=== PATIENT | female | born 1935 | race Hispanic/Latino ===

== ENCOUNTER → 2017-09-28 | Day surgery (SDC) | payer MEDICARE ==
[~2017-09-28] MED LIST: ACETAMINOP325 MG/10 PO; ARICEPT5 MG PO; BELLADONNA/OPIUM 60 MG SUPP PR ONE; CALCIUM CARBON500 MG PO; CARVEDILOL3.125 MG PO; CEFTRIAXONE SOD 1 GM VIAL ONE; IOPAMIDOL 610MG/1ML 300 MG/ML VIAL IV ONE; LIDOCAINE HCL 2% LOCAL INJ 5 ML SDV VIAL INJ ONE; MULTI-VITAMIN1 EACH PO; NAMENDA10 MG PO; NATURAL TEARS OP; ONDANSETRON HCL INJ 2 MG/ML VIAL ONE; PROPOFOL IV EMULSION 10 MG/ML 20 ML VIAL ONE; ROBITUSSIN COU118 ML PO; ROPINIROLE HC0.25 MG PO; SEVOFLURANE INHAL SOLN 250 ML PEN BTL ONE; XANAX1 MG PO
--- NOTE | 2017-11-22 14:13 | Operative Report ---
DATE OF PROCEDURE: September 28, 2017 PREOPERATIVE DIAGNOSIS: Left nephrolithiasis. POSTOPERATIVE DIAGNOSES: 1. Left nephrolithiasis. 2. Mild rectocele. 3. Atrophic (senile) vaginitis. OPERATIONS PERFORMED: 1. Cystourethroscopy with left ureteral catheterization and retrograde ureteropyelography. 2. Interpretation of retrograde ureteropyelography. 3. Supervision of fluoroscopy, no radiologist present. 4. Cystourethroscopy with insertion of left indwelling ureteral stent. 5. Pelvic examination under anesthesia. ANESTHESIA: General. COMPLICATIONS: None. CLINICAL SUMMARY: Nabila Montgomery is an 82-year-old woman with urinary tract infections and hematuria. She is status post a right nephrectomy. She has a large left renal stone and is brought for management. She is aware of the risks of bleeding, infection, injury to adjacent structures, need for additional procedures, and elected to proceed. OPERATIVE PROCEDURE IN DETAIL: Informed consent was verified. Nabila Montgomery was properly identified, taken to the operating room, and placed on the cystoscopy table in supine position. Anesthesia was uneventfully begun. The patient was then carefully and gently repositioned in the dorsal lithotomy position with all pressure points well padded. Her genitalia were prepared and draped in usual sterile fashion. The 22.5-[place]ian cystoscope sheath with the obturator in place was atraumatically inserted into patient's urethra and bladder was drained. Panendoscopy of the urinary bladder revealed no suspicious mucosal lesions, no tumors, no stones, and no diverticula. There was a mound present where the right ureteral orifice should be. Multiple attempts were made to cannulate and find a hole within this mound and this was unsuccessful. A normal left ureteral orifice was identified. It was cannulated with ureteral catheter and retrograde ureteral pyelograms were performed. We then negotiated an open-ended catheter with the aid of a guidewire up into the proximal collecting system and obtained culture and sensitivity. We then with cystoscopic and fluoroscopic guidance placed a left indwelling ureteral stent coiled in patient's kidney as well as patient's bladder. The retaining suture was cut short. Patient's bladder was then drained. The cystoscope was withdrawn. Interpretation of retrograde ureteropyelography: Contrast was instilled in retrograde fashion on left hand side. Distal ureter was remarkable. There was a filling defect in the mid ureter corresponding to what we believe is obstructing stone. There was also filling defect corresponding to calcification as a renal pelvis stone. The stent was in perfect position, coiled in patient's renal pelvis as well as the patient's bladder at the end of the case. The patient's bladder was drained. The cystoscope was withdrawn. Pelvic examination under anesthesia revealed a minimal rectocele and atrophic (senile) vaginitis. Patient was then uneventfully reversed from anesthesia and taken to recovery room in stable condition. There were no complications to the procedure. She tolerated the procedure well. Plans will include further stone imaging, also returning the patient back to the operating room for a left ESWL. Job#: [id number]
== END | disposition home or self-care (01) ==
LOC: OR 08:24
PROVIDERS: ATTEND Urology
DX: N20.0 Calculus of kidney (principal); N39.0 Urinary tract infection, site not specified; N39.46 Mixed incontinence; N81.6 Rectocele; N95.2 Postmenopausal atrophic vaginitis; Z90.5 Acquired absence of kidney; G20 Parkinson's disease; I10 Essential (primary) hypertension; I48.91 Unspecified atrial fibrillation; F03.90 Unspecified dementia, unspecified severity, without behavioral disturbance, psychotic disturbance, mood disturbance, and anxiety; F32.9 Major depressive disorder, single episode, unspecified; F41.9 Anxiety disorder, unspecified
CPT/HCPCS: 52332; 74420; 87086; 87186; C1758; C2617; J0696; J2001; J2405; Q9967

== ENCOUNTER → 2017-10-18 | Outpatient (CLI) | payer MEDICARE ==
[~2017-10-18] MED LIST changes: -BELLADONNA/OPIUM 60 MG SUPP PR ONE; -CEFTRIAXONE SOD 1 GM VIAL ONE; -IOPAMIDOL 610MG/1ML 300 MG/ML VIAL IV ONE; -LIDOCAINE HCL 2% LOCAL INJ 5 ML SDV VIAL INJ ONE; -ONDANSETRON HCL INJ 2 MG/ML VIAL ONE; -PROPOFOL IV EMULSION 10 MG/ML 20 ML VIAL ONE; -SEVOFLURANE INHAL SOLN 250 ML PEN BTL ONE
--- NOTE | 2017-10-18 12:14 | Diagnostic Imaging Report ---
PROCEDURE: CT ABDOMEN AND PELVIS WITHOUT CONTRAST TECHNIQUE: The abdomen and pelvis were scanned utilizing a multidetector helical scanner from the diaphragm to the lesser trochanter after the oral administration of water (Gastroview/Readi-Cat 2). No IV contrast was administered per protocol. Coronal and sagittal multiplanar reformations were obtained. COMPARISON: None. INDICATIONS: RENAL STONE FINDINGS: ABSENCE OF INTRAVENOUS CONTRAST DECREASES SENSITIVITY FOR DETECTION OF FOCAL LESIONS AND VASCULAR PATHOLOGY. LOWER THORAX: Bibasilar atelectatic changes secondary to posterior eventration of the hemidiaphragms, left greater than right. Atherosclerotic calcification of the coronary arteries and thoracic aorta. HEPATOBILIARY: No focal hepatic lesions. No intrahepatic biliary ductal dilatation. Mild dilation of the common bile duct, which measures 7-8 mm at the scotty hepatis. No radiopaque intraluminal filling defects. Cholecystectomy clips. SPLEEN: No splenomegaly. PANCREAS: Moderate atrophy. No ductal dilation or focal lesions. ADRENALS: No adrenal nodules. KIDNEYS/URETERS: Right kidney is absent. 1.3 cm, nonobstructing calculus in the left renal pelvis (series 3, image 56 and sagittal image 96). Adjacent 2 mm nonobstructing calculus in the interpolar region (series 3, image 54). No other renal or any ureteral calculi. Minimal left pelviectasis. Left double-J internal ureteral stent in place. No significant stent encrustation is noted. No renal contour abnormalities. PELVIC ORGANS/BLADDER: The bladder shows no focal lesions. Uterus is absent. No adnexal masses.. PERITONEUM / RETROPERITONEUM: No free air or fluid. 7 mm calcification in the mesentery likely represents a calcified lymph node (series 3, image 85). LYMPH NODES: No lymphadenopathy. VESSELS: Atherosclerotic calcification of the abdominal aorta and iliac vessels. GI TRACT: Mild dilation of the distal rectum measuring 7 cm in AP diameter, which is filled with stool (sagittal image 85). No significant wall thickening. Rest of the bowel shows no dilation or evidence of obstruction. Sigmoid and distal descending diverticulosis, without diverticulitis. BONES AND SOFT TISSUES: Generalized osteopenia. 2-3 mm nonaggressive appearing focal sclerotic lesions in the proximal femurs and pelvic bones (for example series 3, images 167, 146, 143). 1.1 cm right acetabular and 0.8 cm left iliac bone sclerotic lesions, which have a nonaggressive appearance (series 3, images 94, and 145). 6-7 mm ill-defined sclerotic lesion in the left iliac bone (series 3, image 108). The posteromedial aspects of the right and left 10th ribs show sclerosis and indistinct cortical surfaces (series 3, images 14-16), without associated soft tissue mass. Facet hypertrophy. L5-S1. Rightward curvature of the lumbar spine, which may be positional. Soft tissues are unremarkable. IMPRESSION: 1. 1.3 cm nonobstructing calculus in the left renal pelvis. Adjacent 2 mm nonobstructing calculus in the left interpolar region. 2. Minimal left pelviectasis. No ureteral calculi, hydronephrosis, or obstruction. Left double-J internal ureteral stent in place, without significant encrustation. 3. Absent right kidney. 4. Indeterminate sclerotic lesions in the posterior aspect of the right and left 10th ribs, with indistinct cortical surfaces. Recommend bone scan for further evaluation. Other sclerotic foci in the pelvis and proximal femurs likely represent bone islands. 5. Mild dilation of the distal rectum, with prominent retained stool. No evidence of obstruction. 6. Mild dilation of the common bile duct likely reflect post cholecystectomy status. Tolu Moe M.D. Dictated by: Tolu Moe M.D. on 10/18/2017 at 12:17 Electronically approved by: Tolu Moe M.D. on 10/18/2017 at 12:17
== END ==
LOC: CT 09:26
PROVIDERS: ATTEND Urology
DX: N20.0 Calculus of kidney (principal)
CPT/HCPCS: 74176

== ENCOUNTER → 2017-11-04 | Day surgery (SDC) | payer MEDICARE, OTHER ==
[~2017-11-04] MED LIST changes: +CEFTRIAXONE SOD 1 GM VIAL ONE; +LIDOCAINE HCL 2% LOCAL INJ 5 ML SDV VIAL INJ ONE; +ONDANSETRON HCL INJ 2 MG/ML VIAL ONE; +PROPOFOL IV EMULSION 10 MG/ML 20 ML VIAL ONE; +SEVOFLURANE INHAL SOLN 250 ML PEN BTL ONE; +TYLENOL WITH C1 EACH PO; +XARELTO10 MG PO
--- NOTE | 2017-11-04 13:37 | Diagnostic Imaging Report ---
PROCEDURE:X-RAY ABDOMEN - KUB COMPARISON:CT dated 10/18/17 INDICATIONS:pre-op left eswl FINDINGS: There is a non-obstructed bowel-gas pattern. Large rectal stool burden. Left nephroureteral stent in place. 1 cm calcification overlying left renal shadow. Right renal shadow is not completely within field of view, limiting evaluation. Severe aortoiliac calcification. There are no acute osseous abnormalities, although evaluation is limited by demineralization. The lung bases are clear. CONCLUSION: Left nephroureteral stent in place. 1 cm left renal calculus. Right renal shadow is not completely within field of view, limiting evaluation. Dictated by: Ha Gallegos M.D. on 11/04/2017 at 13:41 Electronically approved by: Ha Gallegos M.D. on 11/04/2017 at 13:41
--- NOTE | 2017-12-19 05:01 | Operative Report ---
DATE OF PROCEDURE: November 04, 2017 PREOPERATIVE DIAGNOSIS: Left nephrolithiasis. POSTOPERATIVE DIAGNOSIS: Left nephrolithiasis. OPERATIONS PERFORMED: 1. Staged left-sided extracorporeal shock wave lithotripsy. 2. Supervision of fluoroscopy. No radiologist present. ANESTHESIA: General. COMPLICATIONS: None. CLINICAL SUMMARY: Nabila Montgomery is an 82-year-old woman with left nephrolithiasis. She is brought for the above procedures. She and the family are aware of the risks of bleeding, infection, injury to adjacent structures, need for additional procedures and elected to proceed. OPERATIVE PROCEDURE IN DETAIL: Informed consent was verified. Nabila Montgomery was properly identified, taken to the operating room, placed on the lithotripsy table in supine position. Anesthesia was uneventfully begun. The patient's 13-mm nephrolithiasis was localized with biplanar fluoroscopy. Total of 3000 shocks were delivered with some degree of fragmentation noted. The patient was then uneventfully reversed from anesthesia and taken to recovery room in stable condition. There were no complications during to the procedure. She tolerated the procedure well. Plans will be to return the patient to the operating room in several weeks to remove her stent, perform left ureteroscopy and indicated procedures. Job#: [id number] ADRIANA
== END | disposition home or self-care (01) ==
LOC: OR 05:45
PROVIDERS: ATTEND Urology
DX: N20.0 Calculus of kidney (principal); Z96.0 Presence of urogenital implants; N39.0 Urinary tract infection, site not specified; I10 Essential (primary) hypertension; I48.91 Unspecified atrial fibrillation; E11.9 Type 2 diabetes mellitus without complications; G30.9 Alzheimer's disease, unspecified; F02.80 Dementia in other diseases classified elsewhere, unspecified severity, without behavioral disturbance, psychotic disturbance, mood disturbance, and anxiety; F41.9 Anxiety disorder, unspecified; Z66 Do not resuscitate; Z79.02 Long term (current) use of antithrombotics/antiplatelets; Z86.718 Personal history of other venous thrombosis and embolism
CPT/HCPCS: 50590; 74018; J0696; J2001; J2405

== ENCOUNTER → 2017-12-14 | Day surgery (SDC) | payer MEDICARE, OTHER ==
[~2017-12-14] MED LIST changes: +DEXAMETHASONE SOD PHOS INJ 4 MG/ML VIAL ONE; +GENTAMICIN 80MG/NS 100 ML 200 ML IV ONE; +IOPAMIDOL 300MG/ML 50ML INFUS..BTL IV ONE; +ROCURONIUM BROMIDE 10 MG/ML 5ML VIAL ONE
[2017-12-14 10:20] LABS: BASOPHILS % 0.4 % (0.0-1.0); EOSINOPHILS # (AUTO) 0.2 (0.0-0.4); EOSINOPHILS % 2.8 % (0.0-6.0); HEMATOCRIT 33.5 % (34.2-44.1); LYMPHOCYTES # (AUTO) 1.9 (1.0-3.2); LYMPHOCYTES % 28.1 % (18.0-39.1); MEAN CORPUSCULAR HEMOGLOBIN 30.5 pg (28-32); MEAN CORPUSCULAR HGB CONC 32.8 g/dL (31-35); MEAN CORPUSCULAR VOLUME 92.8 fL (81-99); MONOCYTES # (AUTO) 0.4 (0.2-0.8); MONOCYTES % 6.2 % (4.4-11.3); NEUTROPHILS # (AUTO) 4.2 (2.1-6.9); NEUTROPHILS % 62.2 % (38.7-80.0); PLATELET COUNT 195 x10e3/uL (140-360); RED BLOOD COUNT 3.61 x10e6/uL (3.6-5.1); RED CELL DISTRIBUTION WIDTH 16.7 % (11.7-14.4)
--- NOTE | 2017-12-14 10:44 | Diagnostic Imaging Report ---
PROCEDURE:X-RAY ABDOMEN - KUB COMPARISON:KUB 11/04/[address] Abdomen/Pelvis 10/18/17. INDICATIONS:PREOPERATIVE XRAY FOR UROLOGY SURGERY FINDINGS: Left sided internal ureteral stent in unchanged position. Again noted is a 1 cm calcification overlying the left kidney. Non obstructive bowel gas pattern. Status post cholecystectomy. Atherosclerotic aortic calcifications. No acute bony abnormalities. Dextroconvex curvature of the lumbar spine with degenerative changes. CONCLUSION: Left ureteral stent. Similar appearance of 1 cm left renal stone. Dictated by: JAY WELLER M.D. on 12/14/2017 at 10:50 Electronically approved by: JAY WELLER M.D. on 12/14/2017 at 10:50
--- NOTE | 2017-12-14 11:48 | Diagnostic Imaging Report ---
PROCEDURE: A single AP view of the chest. COMPARISON: None. INDICATIONS: PREOPERATIVE XRAY FOR UROLOGY SURGERY FINDINGS: Lines/tubes: None. Lungs: The lungs are moderately inflated. Mild left basilar atelectasis. There is no evidence of pneumonia or pulmonary edema. Pleura: There is no pleural effusion or pneumothorax. Heart and mediastinum: The heart and the mediastinum are unremarkable. Bones: No acute bony abnormality. IMPRESSION: No acute cardiopulmonary disease. Dictated by: Jonathan Bae M.D. on 12/14/2017 at 11:53 Electronically approved by: Jonathan Bae M.D. on 12/14/2017 at 11:53
--- NOTE | 2018-02-07 15:33 | Operative Report ---
DATE OF PROCEDURE: December 14, 2017 PREOPERATIVE DIAGNOSES: 1. Left nephrolithiasis. 2. Left indwelling ureteral stents. POSTOPERATIVE DIAGNOSES: 1. Left nephrolithiasis. 2. Left indwelling ureteral stents. 3. Atrophic vaginitis. 4. Mild rectocele. PROCEDURES PERFORMED: Note: These are all staged procedures as part of a multistage, multistep process in managing the patient's urolithiasis. 1. Cystourethroscopy with removal of left indwelling ureteral stent (separate procedure performed with a separate scope for the diagnosis of the stent). 2. Extensive left ureteroscopy with stone manipulation (separate procedure performed for the massive amount of nephrolithiasis within the patient). 3. Radiological services for supervision and interpretation of ureteroscopy. 4. Interpretation of retrograde ureteropyelography. 5. Supervision of fluoroscopy. No radiologist present. 6. Pelvic examination under anesthesia. ANESTHESIA: General. COMPLICATIONS: None. CLINICAL SUMMARY: Nabila Montgomery is an 82-year-old woman with nephrolithiasis. She underwent ureteral stenting and underwent stone treatment. She is brought to the operating room in hopes of rendering her stent-free and stone-free. Family and the patient are aware of the risks of bleeding, infection, injury to adjacent structures, need for additional procedures and elected to proceed. OPERATIVE PROCEDURE IN DETAIL: Informed consent was verified. Nabila Montgomery was properly identified, taken to the operating room and placed on the cystoscopy table in supine position, and anesthesia was uneventfully begun. The patient was then carefully and gently repositioned in the dorsal lithotomy position with all pressure points well padded. Her genitalia were prepared and draped in the usual sterile fashion. The 22.5-[place]ian cystoscope sheath with the obturator in place was atraumatically inserted in the patient's urethra, and the bladder was drained. Panendoscopy revealed no suspicious mucosal lesions, no tumors, no stones and no diverticula. A stent was noted to be emerging from the left ureteral orifice. A guidewire was then placed alongside the stent and guided to the level of the patient's kidney. The stent was then grasped, completely removed and discarded. A semi-rigid ureteroscope was then placed alongside the guidewire into the ureter where there was extensive amount of sand noted. This sand was irrigated loose from the mucosa, but there were no significantly sized stones to grasp. A secondary guidewire was left in place, and we utilized to guide a flexible ureteroscope to the level of the patient's kidney. Within the kidney there was a massive amount of stone burden. There were innumerable stones measuring 2 mm or less within the patient's intrarenal collecting system. We manipulated these stones as best as possible to dislodge them. We also irrigated the renal pelvis free of numerous blood clots. All this stone burden is passable. However, the patient is not ideally mobile and does not ambulate as one would wish, and passage of all this stone burden may prove challenging. Nevertheless, all these stone fragments that are now left behind are passable. Following removal of as many stones as we could and irrigation of all remaining stones, we carefully re-examined the ureter, which exhibited no residual stone fragments. The patient's bladder was then drained. The cystoscope was withdrawn. Interpretation of retrograde ureteropyelography: Contrast was instilled in a retrograde fashion on the left-hand side. There was chronic hydronephrosis with caliceal blunting. There was unobstructed drainage that was noted down a relatively unremarkable ureter. There was no extravasation. Pelvic examination under anesthesia revealed atrophic vaginitis with a mild rectocele. No abnormal palpable pelvic masses could be appreciated, and there were no obvious mucosal lesions. Patient was then uneventfully reversed from anesthesia and taken to the recovery room in stable condition. There were no complications of the procedure. He tolerated the procedure well. Explicit discharge instructions were given. We will follow the patient up in the office. Job#: [id number] BRENDAN
== END | disposition home or self-care (01) ==
LOC: OR 09:50
PROVIDERS: ATTEND Urology
DX: N20.0 Calculus of kidney (principal); Z46.6 Encounter for fitting and adjustment of urinary device; N95.2 Postmenopausal atrophic vaginitis; N81.6 Rectocele; N13.30 Unspecified hydronephrosis; F03.90 Unspecified dementia, unspecified severity, without behavioral disturbance, psychotic disturbance, mood disturbance, and anxiety; I48.91 Unspecified atrial fibrillation; I10 Essential (primary) hypertension; G20 Parkinson's disease; Z79.02 Long term (current) use of antithrombotics/antiplatelets; Z86.73 Personal history of transient ischemic attack (TIA), and cerebral infarction without residual deficits
CPT/HCPCS: 36415; 52352; 71045; 74420; 85025; 87086; J0696; J1100; J1580; J2001; J2405; Q9967; 74018

== ENCOUNTER → 2018-01-24 | Outpatient (CLI) | payer MEDICARE, OTHER ==
[~2018-01-24] MED LIST changes: -CEFTRIAXONE SOD 1 GM VIAL ONE; -DEXAMETHASONE SOD PHOS INJ 4 MG/ML VIAL ONE; -GENTAMICIN 80MG/NS 100 ML 200 ML IV ONE; -IOPAMIDOL 300MG/ML 50ML INFUS..BTL IV ONE; -LIDOCAINE HCL 2% LOCAL INJ 5 ML SDV VIAL INJ ONE; -ONDANSETRON HCL INJ 2 MG/ML VIAL ONE; -PROPOFOL IV EMULSION 10 MG/ML 20 ML VIAL ONE; -ROCURONIUM BROMIDE 10 MG/ML 5ML VIAL ONE; -SEVOFLURANE INHAL SOLN 250 ML PEN BTL ONE
--- NOTE | 2018-01-24 12:18 | Diagnostic Imaging Report ---
PROCEDURE: CT ABDOMEN AND PELVIS WITHOUT CONTRAST TECHNIQUE: The abdomen and pelvis were scanned utilizing a multidetector helical scanner from the diaphragm to the lesser trochanter without IV or oral contrast. Coronal and sagittal multiplanar reformations were obtained. COMPARISON: CT Abdomen/Pelvis 10/18/17. INDICATIONS: RENAL CALCULUS FINDINGS: ABSENCE OF INTRAVENOUS CONTRAST DECREASES SENSITIVITY FOR DETECTION OF FOCAL LESIONS AND VASCULAR PATHOLOGY. LOWER THORAX: Bibasilar patchy atelectasis. Coronary atherosclerosis. HEPATOBILIARY: No focal hepatic lesions. Status post cholecystectomy. Mild prominence of the CBD is unchanged. SPLEEN: No splenomegaly. PANCREAS: No focal masses or ductal dilatation. Moderate parenchymal atrophy. ADRENALS: No adrenal nodules. KIDNEYS/URETERS: Right kidney is absent. Interval removal of left sided internal ureteral stent. No evidence of hydronephrosis. No evidence of solid mass. Interval treatment of previously noted large left renal pelvis stone. Enlarging 6 mm left upper pole renal stone on series 3, image 53, previously 1 mm. There is a new 4 mm left mid pole renal stone on image 58, enlarging 6 mm left lower pole stone on image 64 previously 2 mm; and en enlarging 4 mm left lower pole stone on image 70, previously 2 mm. No evidence of ureteral stone. PELVIC ORGANS/BLADDER: Uterus is absent. Punctate dependent 1-2 mm stones are present within the bladder near the left UVJ. PERITONEUM / RETROPERITONEUM: No free air or fluid. LYMPH NODES: No lymphadenopathy. VESSELS: Atherosclerotic changes of the abdominal aorta and branch vessels. GI TRACT: No distention or wall thickening. Diverticulosis without CT evidence of diverticulitis. BONES AND SOFT TISSUES: No acute bony findings. Diffuse osteopenia. Previously identified sclerotic foci in the bilateral tenth ribs are no longer visualized. Other scattered sclerotic foci are unchanged from CT on 10/18/17. IMPRESSION: Status post interval removal of left internal ureteral stent with no hydronephrosis. Interval treatment of left sided renal pelvis stone. Non-obstructive left sided stones measuring up to 6 mm as above and punctate bladder stones. No evidence of ureteral stone. Dictated by: JAY WELLER M.D. on 01/24/2018 at 9:24 Electronically approved by: JAY WELLER M.D. on 01/24/2018 at 9:24
--- NOTE | 2018-01-24 12:19 | Diagnostic Imaging Report ---
PROCEDURE:X-RAY ABDOMEN - KUB COMPARISON:CT Abdomen/Pelvis 10/18/17 and 01/24/18. KUB 12/14/17. INDICATIONS:CALCULUS OF KIDNEY FINDINGS: Interval removal of left sided internal ureteral stent. Bowel gas obscures visualization of the left kidney. There is a 6 mm calcification projecting over the left mid kidney, corresponding to stone. No stones seen overlying the expected course of the ureter. Non-obstructive bowel gas pattern. Diffuse osteopenia with dextroconvex scoliosis of the thoracolumbar spine. No acute bony findings. CONCLUSION: Left sided renal stone measuring 6 mm. Please refer to the same day abdominal CT for further details. Dictated by: JAY WELLER M.D. on 01/24/2018 at 9:27 Electronically approved by: JAY WELLER M.D. on 01/24/2018 at 9:27
== END ==
LOC: CT 07:40
PROVIDERS: ATTEND Urology
DX: N20.0 Calculus of kidney (principal)
CPT/HCPCS: 74018; 74176

== ENCOUNTER → 2018-02-08 | Outpatient (CLI) | payer MEDICARE ==
[2018-02-08 10:13] LABS: BASOPHILS % 0.4 % (0.0-1.0); EOSINOPHILS # (AUTO) 0.2 (0.0-0.4); EOSINOPHILS % 2.1 % (0.0-6.0); HEMATOCRIT 36.3 % (34.2-44.1); HEMOGLOBIN 11.9 g/dL (12.0-16.0); LYMPHOCYTES # (AUTO) 2.4 (1.0-3.2); LYMPHOCYTES % 31.7 % (18.0-39.1); MEAN CORPUSCULAR HEMOGLOBIN 30.9 pg (28-32); MEAN CORPUSCULAR HGB CONC 32.8 g/dL (31-35); MEAN CORPUSCULAR VOLUME 94.3 fL (81-99); MONOCYTES # (AUTO) 0.6 (0.2-0.8); MONOCYTES % 7.7 % (4.4-11.3); NEUTROPHILS # (AUTO) 4.3 (2.1-6.9); NEUTROPHILS % 57.8 % (38.7-80.0); PLATELET COUNT 239 x10e3/uL (140-360); RED BLOOD COUNT 3.85 x10e6/uL (3.6-5.1); RED CELL DISTRIBUTION WIDTH 15.8 % (11.7-14.4)
[2018-02-08 10:39] LABS: BLOOD UREA NITROGEN 14 mg/dL (7-26); BUN/CREATININE RATIO 19 (6-25); CALCIUM 9.1 mg/dL (8.4-10.2); CARBON DIOXIDE 24 mmol/L (22-29); CHLORIDE 109 mmol/L (98-107); CREATININE, SERUM 0.72 mg/dL (0.57-1.11); EST GLOMERULAR FILTRATION RATE > 60 ML/MIN (60-); GLUCOSE 93 mg/dL (74-118); SODIUM 142 mmol/L (136-145)
--- NOTE | 2018-02-08 11:28 | Diagnostic Imaging Report ---
EXAMINATION: ABDOMEN-2 VIEWS (KUB) COMPARISON: CT Abdomen/Pelvis 01/24/18. FINDINGS: Bowel gas partially obscures visualization of the kidneys. There are three calcifications, consistent with stones overlying the left kidney measuring 3 mm, 5 mm, and 6 mm. Additional smaller left renal and bladder stones are not visualized. Calcified phleboliths project over the pelvis. There is a nonobstructive bowel gas pattern. The rectum is distended measuring up to 10 cm. Status post cholecystectomy. Diffuse osteopenia. Dextroconvex curvature of the lumbar spine. Atherosclerotic aortic calcifications. IMPRESSION: Left sided renal stones measuring up to 6 mm. Signed by: Dr. Elisa Jay MD on 02/08/2018 11:24 AM
== END ==
LOC: RAD 09:20 → OR 09:20 → EDSTATUS 11:00
PROVIDERS: ATTEND Urology
DX: Z01.818 Encounter for other preprocedural examination (principal); N20.0 Calculus of kidney; Z53.8 Procedure and treatment not carried out for other reasons
CPT/HCPCS: 36415; 74018; 80048; 84550; 85025; 93005

== ENCOUNTER → 2018-02-10 | Day surgery (SDC) | payer MEDICARE, OTHER ==
[~2018-02-10] MED LIST changes: +CEFTRIAXONE SOD 1 GM VIAL ONE; +DEXAMETHASONE SOD PHOS INJ 4 MG/ML VIAL ONE; +IOPAMIDOL 610MG/1ML 300 MG/ML VIAL IV ONE; +LIDOCAINE HCL 2% LOCAL INJ 5 ML SDV VIAL INJ ONE; +ONDANSETRON HCL INJ 2 MG/ML VIAL ONE; +PROPOFOL IV EMULSION 10 MG/ML 20 ML VIAL ONE; +SEVOFLURANE INHAL SOLN 250 ML PEN BTL ONE
[2018-02-10 14:30] VITALS: BP 130/66
--- NOTE | 2018-03-21 01:58 | Operative Report ---
DATE OF PROCEDURE: February 10, 2018 PREOPERATIVE DIAGNOSES 1. Left nephrolithiasis. 2. Left ureterolithiasis. 3. Cystolithiasis. POSTOPERATIVE DIAGNOSES 1. Left nephrolithiasis. 2. Left ureterolithiasis. 3. Cystolithiasis. OPERATIONS PERFORMED: Note these are all staged procedures as part of a multistage multistep process of managing patient's urolithiasis. 1. Left-sided extracorporeal shock wave lithotripsy (separate staged procedure for the left nephrolithiasis). 2. Cystourethroscopy with left ureteral catheterization and retrograde pyelography (separate procedure performed to evaluate for left ureterolithiasis). 3. Cystolitholapaxy (separate procedure performed for the cystolithiasis). 4. Interpretation of retrograde ureteropyelography. ANESTHESIA: General. COMPLICATIONS: None. CLINICAL SUMMARY: Nabila Montgomery is an 82-year-old woman with urolithiasis. She is status post a right-sided nephrectomy. She is brought to the operating room today for management of her 7-mm left kidney stone. In the upper kristen, there was a 6-mm stone in the middle kristen and the lower kristen. The family is aware of the risks of bleeding, infection, injury to adjacent structures, need for additional procedures, and elected to proceed. OPERATIVE PROCEDURE IN DETAIL: Informed consent was verified. Nabila Montgomery was properly identified, taken to operating room, placed on the lithotripsy table in supine position. Anesthesia was uneventfully begun. The patient's left nephrolithiasis was localized with biplanar fluoroscopy. Total of 3000 shocks were delivered distributing them among the upper middle and lower caliceal stones. Fragmentation was noted. The patient was carefully and gently repositioned in dorsal lithotomy position with all pressure points well padded. Her genitalia were prepared and draped in usual sterile fashion. A 22.5-Turkish cystoscope sheath with obturator in place was atraumatically inserted in patient's urethra and the bladder was drained. Panendoscopy of urinary bladder revealed no suspicious mucosal lesions. No tumors and no diverticula. Heavy trabeculations were noted. With multiple cellules present. There was rather significant amount of sand noted within the bladder. There were copious amounts of bladder stones present. We could not identify the right ureteral orifice status post the patient's nephrectomy. We did see the left ureteral orifice. We cannulated that orifice and contrast was injected. Interpretation of retrograde ureteropyelography contrast was instilled in retrograde fashion. There were filling defects in the intrarenal collecting system, which corresponded to the locations where we performed lithotripsy. We presumed these filling defects are blood clots, as well as fragmented stone debris. The ureter was unremarkable. There were no tumors, no stones, and no diverticula. Unobstructed drainage was observed fluoroscopically. The calcification that was suggested to be a left ureteral stone is a phlebolith and is not associated with the urinary tract collecting system. Cystolitholapaxy was then performed. We evacuated numerous amount of bladder stones and careful panendoscopy revealed that indeed all bladder stone fragments were removed. The patient's bladder was drained. Cystoscope was withdrawn and the patient was uneventfully reversed from anesthesia and taken to recovery room in stable condition. There were no complications to procedure. She tolerated the procedure well. Explicit postop instructions were given. Will follow the patient up in the office. Job#: [id number] CQ
== END | disposition home or self-care (01) ==
LOC: OR 08:25
PROVIDERS: ATTEND Urology
DX: N20.0 Calculus of kidney (principal); N20.1 Calculus of ureter; N21.0 Calculus in bladder; Z90.5 Acquired absence of kidney; N32.89 Other specified disorders of bladder; N39.0 Urinary tract infection, site not specified; N39.46 Mixed incontinence; I10 Essential (primary) hypertension; I48.91 Unspecified atrial fibrillation; F03.90 Unspecified dementia, unspecified severity, without behavioral disturbance, psychotic disturbance, mood disturbance, and anxiety; G20 Parkinson's disease; F41.9 Anxiety disorder, unspecified; Z79.02 Long term (current) use of antithrombotics/antiplatelets
CPT/HCPCS: 50590; 52317; 87086; 88300; C1758; J0696; J1100; J2001; J2405; Q9967

== ENCOUNTER → 2018-03-20 | Outpatient (CLI) | payer MEDICARE ==
[~2018-03-20] MED LIST changes: -CEFTRIAXONE SOD 1 GM VIAL ONE; -DEXAMETHASONE SOD PHOS INJ 4 MG/ML VIAL ONE; -IOPAMIDOL 610MG/1ML 300 MG/ML VIAL IV ONE; -LIDOCAINE HCL 2% LOCAL INJ 5 ML SDV VIAL INJ ONE; -ONDANSETRON HCL INJ 2 MG/ML VIAL ONE; -PROPOFOL IV EMULSION 10 MG/ML 20 ML VIAL ONE; -SEVOFLURANE INHAL SOLN 250 ML PEN BTL ONE
--- NOTE | 2018-03-20 09:56 | Diagnostic Imaging Report ---
PROCEDURE: CT ABDOMEN AND PELVIS WITHOUT CONTRAST TECHNIQUE: The abdomen and pelvis were scanned utilizing a multidetector helical scanner from the diaphragm to the lesser trochanter. No IV contrast was administered per renal stone protocol. Coronal and sagittal multiplanar reformations were obtained. COMPARISON: CT Abdomen/Pelvis 01/24/18. Report from CT abd/pelvis outside hospital 02/16/2018, no images are available for review. INDICATIONS: SUSPECTED HEMATOMA FINDINGS: ABSENCE OF INTRAVENOUS CONTRAST DECREASES SENSITIVITY FOR DETECTION OF FOCAL LESIONS AND VASCULAR PATHOLOGY. LOWER THORAX: Bibasilar patchy atelectasis. Coronary atherosclerosis. HEPATOBILIARY: No focal hepatic lesions. Status post cholecystectomy. Mild prominence of the CBD is unchanged. SPLEEN: No splenomegaly. PANCREAS: No focal masses or ductal dilatation. Moderate parenchymal atrophy. ADRENALS: No adrenal nodules. KIDNEYS/URETERS: Right kidney is absent. No evidence of hydronephrosis. No evidence of solid mass. Interval treatment of left sided renal stones. Left subcapsular heterogeneously hyperdense hematoma is present measuring up to 3.1 cm in thickness (43 HU series 402, image 60). Per outside hospital CT report, there was a 2.5 cm subcapsular hematoma on 02/16/18, however images are not available for comparison. There is a 3 mm left upper pole renal stone. PELVIC ORGANS/BLADDER: Uterus is absent. Punctate dependent 1-2 mm stones are present within the bladder near the left UVJ. PERITONEUM / RETROPERITONEUM: No free air or fluid. LYMPH NODES: No lymphadenopathy. VESSELS: Atherosclerotic changes of the abdominal aorta and branch vessels. GI TRACT: No distention or wall thickening. Colonic diverticulosis without CT evidence of diverticulitis. Normal appendix. BONES AND SOFT TISSUES: Degenerative changes without acute bony findings. IMPRESSION: Status post intervention for left sided renal stones with development of a left subcapsular hematoma measuring up to 3.1 cm. Per outside hospital CT report, there was a 2.5 cm left subcapsular hematoma on 02/16/18, however images are not available for comparison. Dictated by: JAY WELLER M.D. on 03/20/2018 at 10:05 Electronically approved by: JAY WELLER M.D. on 03/20/2018 at 10:05
== END ==
LOC: CT 08:29
PROVIDERS: ATTEND Urology
DX: R31.0 Gross hematuria (principal); N20.0 Calculus of kidney
CPT/HCPCS: 74176

== ENCOUNTER → 2018-06-02 | Outpatient (CLI) | payer MEDICARE, MEDICAID ==
--- NOTE | 2018-06-02 13:45 | Diagnostic Imaging Report ---
EXAM: CT Abdomen and Pelvis WITHOUT contrast INDICATION: Renal stones. COMPARISON: [facility] 02/08/2018 TECHNIQUE: Abdomen and pelvis were scanned utilizing a multidetector helical scanner from the lung base to the pubic symphysis without administration of IV contrast. Absence of intravenous contrast decreases sensitivity for detection of focal lesions and vascular pathology. Coronal and sagittal reformations were obtained. Renal stone protocol was performed. IV CONTRAST: None. ORAL CONTRAST: Water RADIATION DOSE: Total DLP: 947.5 mGy*cm COMPLICATIONS: None FINDINGS: LINES and TUBES: None. LOWER THORAX: Coronary atherosclerosis. Patchy dependent atelectasis. Calcified granuloma in the left lower lobe. HEPATOBILIARY: No focal hepatic lesions. No biliary ductal dilation. Status post cholecystectomy. SPLEEN: No splenomegaly. PANCREAS: No focal masses or ductal dilatation. ADRENALS: No adrenal nodules KIDNEYS/URETERS: Status post right nephrectomy. No hydronephrosis. No cystic or solid mass lesions. There is a 4 mm nonobstructing left midpole renal stone. GI TRACT: No abnormal distention, wall thickening, or evidence of bowel obstruction. Colonic diverticulosis without CT evidence of diverticulitis. Appendix is normal. PELVIC ORGANS/BLADDER: Fluid noted in the vagina. Status post hysterectomy. LYMPH NODES: No lymphadenopathy. VESSELS: Extensive atherosclerotic changes of the abdominal aorta and branch vessels. PERITONEUM / RETROPERITONEUM: No free air or fluid. BONES/SOFT TISSUES: Diffuse osteopenia. Extra convex scoliosis of the lumbar spine. Partially seen fixation hardware within the right femur. Age indeterminate mild wedge compression deformity of the T11 vertebral body. IMPRESSION: A 4 mm nonobstructing left midpole renal stone. Age indeterminate mild wedge compression deformity of the T11 vertebral body. Signed by: Dr. Elisa Jay MD on 06/02/2018 1:42 PM
== END ==
LOC: CT 10:42
PROVIDERS: ATTEND Urology
DX: N20.0 Calculus of kidney (principal); R31.9 Hematuria, unspecified; R05 Cough; G20 Parkinson's disease; F02.80 Dementia in other diseases classified elsewhere, unspecified severity, without behavioral disturbance, psychotic disturbance, mood disturbance, and anxiety
CPT/HCPCS: 74176

== ENCOUNTER 2021-03-09 15:51 | Inpatient (IN) | payer MEDICARE, OTHER ==
[~2021-03-09] VITALS: Ht 160 cm; Wt 66.2 kg
[2021-03-09 16:35] LABS: BASOPHILS # (AUTO) 0.1 (0.0-0.1); BASOPHILS % 0.4 % (0.0-1.0); EOSINOPHILS # (AUTO) 0.3 (0.0-0.4); EOSINOPHILS % 2.5 % (0.0-6.0); HEMATOCRIT 32.2 % (34.2-44.1); HEMOGLOBIN 9.6 g/dL (12.0-16.0); LYMPHOCYTES # (AUTO) 1.8 (1.0-3.2); LYMPHOCYTES % 15.5 % (18.0-39.1); MEAN CORPUSCULAR HEMOGLOBIN 29.4 pg (28-32); MEAN CORPUSCULAR HGB CONC 29.8 g/dL (31-35); MEAN CORPUSCULAR VOLUME 98.8 fL (81-99); MONOCYTES % 8.7 % (4.4-11.3); NEUTROPHILS # (AUTO) 8.6 (2.1-6.9); NEUTROPHILS % 72.4 % (38.7-80.0); PLATELET COUNT 441 x10e3/uL (140-360); RED BLOOD COUNT 3.26 x10e6/uL (3.6-5.1); RED CELL DISTRIBUTION WIDTH 15.7 % (11.7-14.4)
[2021-03-09 16:45] LABS: INR 1.24; PROTHROMBIN TIME 16.6 seconds (11.9-14.5)
[2021-03-09 16:54] LABS: ALBUMIN/GLOBULIN RATIO 0.6 (0.8-2.0); ANION GAP 13.3 mmol/L (8-16); CALCIUM 7.9 mg/dL (8.4-10.2); CREATININE, SERUM 0.57 mg/dL (0.57-1.11); POTASSIUM 4.3 mmol/L (3.5-5.1)
[2021-03-09] MEDS ORDERED: Morphine 4mg Syringe 4 MG/ML INJ IV PRN (17:45)
[2021-03-09] MEDS: SODIUM CHLORIDE 0.9% 1000ML 1,000 ML IV SCH (18:04)
[2021-03-09] MEDS: PIPERACILLIN/TAZOBACTAM 3.375 GM in SODIUM CHLORIDE 0.9% 50ML 50 ML IV SCH (18:04)
[2021-03-09] MEDS: Morphine 4mg Syringe 4 MG/ML INJ IV PRN (18:05)
[2021-03-09] MEDS ORDERED: SODIUM CHLORIDE 0.9% 1000ML 1,000 ML IV STA ×2 (18:10→18:44)
[2021-03-09 19:38] LABS: CLARITY,URINE CLOUDY (CLEAR); COLOR,URINE AMBER (YELLOW); LEUKOCYTE ESTERASE ,URINE NEGATIVE (NEGATIVE); NITRITE,URINE NEGATIVE (NEGATIVE); PROTEIN,URINE DIPSTICK NEGATIVE (NEGATIVE)
[2021-03-09 19:39] LABS: KETONES,URINE NEGATIVE (NEGATIVE); URINE UROBILINOGEN 0.2 mg/dL (0.2 - 1)
[2021-03-09 20:02] LABS: BACTERIA,URINE MANY /HPF; CALCIUM OXALATE CRYSTALS,UR FEW (FEW); EPITHELIAL CELLS,URINE FEW /LPF; RBC,URINE 21-50 /HPF (0-5)
[2021-03-09 20:04] LABS: URIC ACID CRYSTALS,URINE MANY (FEW)
[2021-03-09 20:05] LABS: AMORPHOUS SEDIMENT,URINE MANY (FEW); TRIPLE PHOSPHATE CRYSTAL,UR FEW (FEW)
[2021-03-09] MEDS ORDERED: HEPARIN SOD (PORCINE) 5,000 UNIT/ML VIAL SC ONE (23:00)
[2021-03-10] VITALS (10 sets, daily range): BP systolic 93–137; BP diastolic 56–72
[2021-03-10 02:43] LABS: CREATINE KINASE MB 1.4 ng/mL (0-5.0)
[2021-03-10] MEDS: Morphine 4mg Syringe 4 MG/ML INJ IV PRN ×3 (02:49→20:37)
[2021-03-10] MEDS: SODIUM CHLORIDE 0.9% 1000ML 1,000 ML IV SCH ×3 (03:16→14:18)
[2021-03-10] MEDS ORDERED: SENNA LAX8.6 MG PO (03:47)
[2021-03-10] MEDS ORDERED: ROBITUSSIN COU118 M4 PO (03:47)
[2021-03-10] MEDS ORDERED: FEROSUL325 MG PO (03:47)
[2021-03-10] MEDS ORDERED: ELIQUIS2.5 MG PO (03:47)
[2021-03-10] MEDS ORDERED: ARGINAID POWDE1 EACH (03:47)
[2021-03-10] MEDS ORDERED: PEPCID20 MG PO (03:47)
[2021-03-10] MEDS ORDERED: ASCORBIC ACID500 M2 PO (03:47)
[2021-03-10] MEDS ORDERED: ZOFRAN4 MG PO (03:47)
[2021-03-10] MEDS ORDERED: HYPROMELLOSE (03:47)
[2021-03-10] MEDS ORDERED: VITAMIN D350 MCG (03:47)
[2021-03-10] MEDS ORDERED: ZINC-22050 MG (03:47)
[2021-03-10] MEDS ORDERED: ATORVASTATIN CA10 MG PO (03:47)
[2021-03-10] MEDS ORDERED: INVANZ1 GM (03:47)
[2021-03-10] MEDS ORDERED: BUSPIRONE HCL5 MG PO (03:47)
[2021-03-10] MEDS ORDERED: MELATONIN3 MG PO (03:47)
[2021-03-10] MEDS: PIPERACILLIN/TAZOBACTAM 3.375 GM in SODIUM CHLORIDE 0.9% 50ML 50 ML IV SCH (03:48)
[2021-03-10] MEDS: ONDANSETRON HCL INJ 2MG/ML 2ML 2 MG/ML VIAL IV PRN ×2 (03:48→20:37)
[2021-03-10 07:48] LABS: BASOPHILS # (AUTO) 0.1 (0.0-0.1); BASOPHILS % 0.9 % (0.0-1.0); EOSINOPHILS # (AUTO) 0.3 (0.0-0.4); EOSINOPHILS % 3.7 % (0.0-6.0); HEMATOCRIT 31.5 % (34.2-44.1); HEMOGLOBIN 8.7 g/dL (12.0-16.0); LYMPHOCYTES # (AUTO) 1.8 (1.0-3.2); LYMPHOCYTES % 22.8 % (18.0-39.1); MEAN CORPUSCULAR HEMOGLOBIN 29.4 pg (28-32); MEAN CORPUSCULAR HGB CONC 27.6 g/dL (31-35); MEAN CORPUSCULAR VOLUME 106.4 fL (81-99); MONOCYTES # (AUTO) 0.6 (0.2-0.8); MONOCYTES % 8.1 % (4.4-11.3); NEUTROPHILS # (AUTO) 4.9 (2.1-6.9); PLATELET COUNT 321 x10e3/uL (140-360); RED BLOOD COUNT 2.96 x10e6/uL (3.6-5.1); RED CELL DISTRIBUTION WIDTH 15.9 % (11.7-14.4)
[2021-03-10 08:08] LABS: ALBUMIN 1.9 g/dL (3.5-5.0); ALBUMIN/GLOBULIN RATIO 0.6 (0.8-2.0); ANION GAP 12.2 mmol/L (8-16); CALCIUM 7.6 mg/dL (8.4-10.2); CREATININE, SERUM 0.55 mg/dL (0.57-1.11); POTASSIUM 4.2 mmol/L (3.5-5.1)
[2021-03-10 11:23] LABS: EOSINOPHILS % (MANUAL) 3 % (0-7); LYMPHOCYTES % (MANUAL) 23 % (19-48); MONOCYTES % (MANUAL) 9 % (3.4-9.0); NEUTROPHILS % (MANUAL) 65 % (40-74)
[2021-03-10 11:24] LABS: PLATELET ESTIMATE ADEQUATE; PLATELET MORPHOLOGY COMMENT NORMAL; RBC MORPHOLOGY COMMENT ABNORMAL
[2021-03-10 11:28] LABS: CREATINE KINASE MB 1.5 ng/mL (0-5.0)
[2021-03-10] MEDS ORDERED: PROPOFOL IV EMULSION 10 MG/ML 20 ML VIAL ONE (12:39)
[2021-03-10] MEDS ORDERED: NEOSTIGMINE 1 MG/ML 10ML VIAL ONE (12:39)
[2021-03-10] MEDS ORDERED: GLYCOPYRROLATE INJ 0.2 MG/ML VIAL ONE (12:39)
[2021-03-10] MEDS ORDERED: SEVOFLURANE INHAL SOLN 250 ML PEN BTL ONE (12:39)
[2021-03-10] MEDS ORDERED: LIDOCAINE HCL 2% LOCAL INJ 5 ML SDV VIAL INJ ONE (12:39)
[2021-03-10] MEDS ORDERED: POVIDONE IODINE 0.05% 0.05 % ML PO ONE (12:39)
[2021-03-10] MEDS ORDERED: ROCURONIUM BROMIDE 10 MG/ML 5ML VIAL IV ONE (12:39)
[2021-03-10] MEDS ORDERED: ONDANSETRON HCL INJ 2MG/ML 2ML 2 MG/ML VIAL ONE (12:39)
[2021-03-10] MEDS: BUSPIRONE HCL 5 MG TAB PO SCH ×2 (15:00→21:00)
[2021-03-10] MEDS ORDERED: ACETAMINOPHEN 1000 MG/100 ML 100 ML IV ONE (15:34)
[2021-03-10] MEDS ORDERED: FENTANYL CITRATE/PF 100MCG/2 ML INJ ONE (15:35)
[2021-03-10] MEDS: MEMANTINE 10 MG TAB PO SCH (17:00)
[2021-03-10] MEDS: CARVEDILOL 3.125 MG TAB PO SCH (17:00)
[2021-03-10] MEDS ORDERED: BUPIVACAINE HCL 0.5% INJ 30 ML VIAL INJ ONE (18:31)
[2021-03-10 20:04] LABS: BASOPHILS # (AUTO) 0.1 (0.0-0.1); BASOPHILS % 0.5 % (0.0-1.0); EOSINOPHILS # (AUTO) 0.5 (0.0-0.4); EOSINOPHILS % 2.8 % (0.0-6.0); HEMATOCRIT 32.8 % (34.2-44.1); HEMOGLOBIN 8.8 g/dL (12.0-16.0); LYMPHOCYTES # (AUTO) 2.8 (1.0-3.2); LYMPHOCYTES % 16.9 % (18.0-39.1); MEAN CORPUSCULAR HEMOGLOBIN 29.7 pg (28-32); MEAN CORPUSCULAR HGB CONC 26.8 g/dL (31-35); MEAN CORPUSCULAR VOLUME 110.8 fL (81-99); MONOCYTES % 5.8 % (4.4-11.3); NEUTROPHILS # (AUTO) 12.2 (2.1-6.9); NEUTROPHILS % 73.2 % (38.7-80.0); PLATELET COUNT 428 x10e3/uL (140-360); RED BLOOD COUNT 2.96 x10e6/uL (3.6-5.1); RED CELL DISTRIBUTION WIDTH 15.8 % (11.7-14.4)
[2021-03-10 20:21] LABS: ANION GAP 12.1 mmol/L (8-16); CALCIUM 7.6 mg/dL (8.4-10.2); CREATININE, SERUM 0.59 mg/dL (0.57-1.11); POTASSIUM 4.1 mmol/L (3.5-5.1)
[2021-03-10] MEDS: DONEPEZIL HCL 5 MG TAB PO SCH (21:00)
[2021-03-10] MEDS: ROPINIROLE HCL 0.25 MG TAB PO SCH (21:00)
[2021-03-10] MEDS: Cefazolin 2 GM in SODIUM CHLORIDE 0.9% 50ML 50 ML IV SCH (22:39)
[2021-03-11] VITALS (8 sets, daily range): BP systolic 103–126; BP diastolic 52–71
[2021-03-11] MEDS: ONDANSETRON HCL INJ 2MG/ML 2ML 2 MG/ML VIAL IV PRN ×2 (00:41→06:52)
[2021-03-11] MEDS: Morphine 4mg Syringe 4 MG/ML INJ IV PRN ×2 (00:41→06:52)
[2021-03-11 05:33] LABS: BASOPHILS % 0.6 % (0.0-1.0); EOSINOPHILS # (AUTO) 0.3 (0.0-0.4); EOSINOPHILS % 4.2 % (0.0-6.0); HEMOGLOBIN 8.4 g/dL (12.0-16.0); LYMPHOCYTES # (AUTO) 1.9 (1.0-3.2); LYMPHOCYTES % 26.1 % (18.0-39.1); MEAN CORPUSCULAR HEMOGLOBIN 29.8 pg (28-32); MEAN CORPUSCULAR VOLUME 106.4 fL (81-99); MONOCYTES # (AUTO) 0.7 (0.2-0.8); MONOCYTES % 10.2 % (4.4-11.3); NEUTROPHILS # (AUTO) 4.2 (2.1-6.9); NEUTROPHILS % 58.5 % (38.7-80.0); PLATELET COUNT 321 x10e3/uL (140-360); RED BLOOD COUNT 2.82 x10e6/uL (3.6-5.1); RED CELL DISTRIBUTION WIDTH 15.7 % (11.7-14.4)
[2021-03-11 05:58] LABS: ALBUMIN 1.8 g/dL (3.5-5.0); ALBUMIN/GLOBULIN RATIO 0.6 (0.8-2.0); ANION GAP 13.9 mmol/L (8-16); CALCIUM 7.7 mg/dL (8.4-10.2); CREATININE, SERUM 0.59 mg/dL (0.57-1.11); POTASSIUM 4.9 mmol/L (3.5-5.1)
[2021-03-11] MEDS: Cefazolin 2 GM in SODIUM CHLORIDE 0.9% 50ML 50 ML IV SCH ×2 (06:01→14:07)
[2021-03-11 06:34] LABS: THYROID STIMULATING HORMONE 0.472 uIU/mL (0.350-4.940)
[2021-03-11] MEDS: PIPERACILLIN/TAZOBACTAM 3.375 GM in SODIUM CHLORIDE 0.9% 50ML 50 ML IV SCH ×3 (06:45→17:20)
[2021-03-11 08:02] LABS: % IRON SATURATION 13 % (15-50); IRON 19 ug/dL (50-170); TOTAL IRON BINDING CAPACITY 147 ug/dL (261-478); TRANSFERRIN 105 mg/dL (180-382)
[2021-03-11] MEDS ORDERED: ZINC SULFATE 220 MG CAP PO SCH (09:00)
[2021-03-11] MEDS: BUSPIRONE HCL 5 MG TAB PO SCH ×3 (09:30→22:04)
[2021-03-11] MEDS: FERROUS SULFATE 325 MG TAB PO SCH (09:31)
[2021-03-11] MEDS: FAMOTIDINE 20 MG TAB PO SCH (09:31)
[2021-03-11] MEDS: MULTIVITAMINS/MINERALS TAB PO SCH (09:31)
[2021-03-11] MEDS: CARVEDILOL 3.125 MG TAB PO SCH ×2 (09:31→16:57)
[2021-03-11] MEDS: MEMANTINE 10 MG TAB PO SCH ×2 (09:31→16:57)
[2021-03-11] MEDS: BALSAM PERU/CASTOR OIL 60 GM OINT...G. TP SCH (09:32)
[2021-03-11 09:44] LABS: ANISOCYTOSIS MODERATE; HYPOCHROMASIA MODERATE; PLATELET ESTIMATE ADEQUATE; PLATELET MORPHOLOGY COMMENT NORMAL; POIKILOCYTOSIS SLIGHT; RBC MORPHOLOGY COMMENT ABNORMAL
[2021-03-11] MEDS ORDERED: ALTEPLASE RECOMBINANT 2 MG/2 ML VIAL IV ONE (10:45)
[2021-03-11] MEDS ORDERED: CALCIUM GLUCONATE 10% INJ 4.65 MEQ in SODIUM CHLORIDE 0.9% 50ML 50 ML IV ONE (11:00)
[2021-03-11] MEDS: SODIUM FERRIC GLUCONATE COMPLX 125 MG in SODIUM CHLORIDE 0.9% 100 ML 100 ML IV SCH (12:59)
[2021-03-11] MEDS: SODIUM CHLORIDE 0.9% 1000ML 1,000 ML IV SCH (12:59)
[2021-03-11] MEDS: DONEPEZIL HCL 5 MG TAB PO SCH (22:04)
[2021-03-11] MEDS: ROPINIROLE HCL 0.25 MG TAB PO SCH (22:04)
[2021-03-11] MEDS: HYDROCODONE/APAP 5MG-325MG TAB PO PRN (22:04)
[2021-03-12] VITALS (9 sets, daily range): BP systolic 83–128; BP diastolic 56–82
[2021-03-12] MEDS: PIPERACILLIN/TAZOBACTAM 3.375 GM in SODIUM CHLORIDE 0.9% 50ML 50 ML IV SCH ×2 (00:37→05:43)
[2021-03-12] MEDS: SODIUM CHLORIDE 0.9% 1000ML 1,000 ML IV SCH ×2 (00:37→14:22)
[2021-03-12] MEDS: HYDROCODONE/APAP 5MG-325MG TAB PO PRN ×2 (03:26→18:10)
[2021-03-12 05:27] LABS: BASOPHILS # (AUTO) 0.1 (0.0-0.1); BASOPHILS % 0.7 % (0.0-1.0); EOSINOPHILS # (AUTO) 0.4 (0.0-0.4); EOSINOPHILS % 4.1 % (0.0-6.0); HEMATOCRIT 23.5 % (34.2-44.1); HEMOGLOBIN 7.3 g/dL (12.0-16.0); LYMPHOCYTES # (AUTO) 1.7 (1.0-3.2); LYMPHOCYTES % 19.1 % (18.0-39.1); MEAN CORPUSCULAR HEMOGLOBIN 30.5 pg (28-32); MEAN CORPUSCULAR HGB CONC 31.1 g/dL (31-35); MEAN CORPUSCULAR VOLUME 98.3 fL (81-99); MONOCYTES # (AUTO) 0.9 (0.2-0.8); MONOCYTES % 9.5 % (4.4-11.3); NEUTROPHILS % 65.8 % (38.7-80.0); PLATELET COUNT 401 x10e3/uL (140-360); RED BLOOD COUNT 2.39 x10e6/uL (3.6-5.1); RED CELL DISTRIBUTION WIDTH 15.9 % (11.7-14.4)
[2021-03-12 06:00] LABS: ALBUMIN 1.8 g/dL (3.5-5.0); ALBUMIN/GLOBULIN RATIO 0.6 (0.8-2.0); ANION GAP 11.8 mmol/L (8-16); CALCIUM 7.5 mg/dL (8.4-10.2); CREATININE, SERUM 0.66 mg/dL (0.57-1.11); POTASSIUM 3.8 mmol/L (3.5-5.1)
[2021-03-12] MEDS: CARVEDILOL 3.125 MG TAB PO SCH ×2 (09:00→16:39)
[2021-03-12] MEDS: BUSPIRONE HCL 5 MG TAB PO SCH ×3 (09:21→21:27)
[2021-03-12] MEDS: SODIUM FERRIC GLUCONATE COMPLX 125 MG in SODIUM CHLORIDE 0.9% 100 ML 100 ML IV SCH (09:21)
[2021-03-12] MEDS: BALSAM PERU/CASTOR OIL 60 GM OINT...G. TP SCH (09:22)
[2021-03-12] MEDS: FERROUS SULFATE 325 MG TAB PO SCH (09:22)
[2021-03-12] MEDS: FAMOTIDINE 20 MG TAB PO SCH (09:22)
[2021-03-12] MEDS: MEMANTINE 10 MG TAB PO SCH ×2 (09:22→16:39)
[2021-03-12] MEDS: MULTIVITAMINS/MINERALS TAB PO SCH (09:22)
[2021-03-12 12:02] LABS: HEMATOCRIT 24.6 % (34.2-44.1); HEMOGLOBIN 7.1 g/dL (12.0-16.0)
[2021-03-12] MEDS ORDERED: SODIUM CHLORIDE 0.9% 1000ML 1,000 ML IV ONE (21:00)
[2021-03-12] MEDS: ROPINIROLE HCL 0.25 MG TAB PO SCH (21:27)
[2021-03-12] MEDS: DONEPEZIL HCL 5 MG TAB PO SCH (21:27)
[2021-03-13] VITALS (8 sets, daily range): BP systolic 102–128; BP diastolic 61–89
[2021-03-13] MEDS: SODIUM CHLORIDE 0.9% 1000ML 1,000 ML IV SCH ×2 (04:08→17:28)
[2021-03-13 05:54] LABS: BASOPHILS % 0.4 % (0.0-1.0); EOSINOPHILS # (AUTO) 0.3 (0.0-0.4); EOSINOPHILS % 3.8 % (0.0-6.0); HEMATOCRIT 23.3 % (34.2-44.1); LYMPHOCYTES % 21.7 % (18.0-39.1); MEAN CORPUSCULAR HEMOGLOBIN 29.8 pg (28-32); MEAN CORPUSCULAR VOLUME 99.1 fL (81-99); MONOCYTES # (AUTO) 0.9 (0.2-0.8); MONOCYTES % 10.1 % (4.4-11.3); NEUTROPHILS # (AUTO) 5.7 (2.1-6.9); NEUTROPHILS % 63.1 % (38.7-80.0); PLATELET COUNT 359 x10e3/uL (140-360); RED BLOOD COUNT 2.35 x10e6/uL (3.6-5.1); RED CELL DISTRIBUTION WIDTH 16.4 % (11.7-14.4)
[2021-03-13 06:17] LABS: ALBUMIN 1.8 g/dL (3.5-5.0); ALBUMIN/GLOBULIN RATIO 0.6 (0.8-2.0); ANION GAP 11.4 mmol/L (8-16); CALCIUM 7.5 mg/dL (8.4-10.2); CREATININE, SERUM 0.59 mg/dL (0.57-1.11); POTASSIUM 3.4 mmol/L (3.5-5.1)
[2021-03-13] MEDS: BUSPIRONE HCL 5 MG TAB PO SCH ×2 (09:00→16:16)
[2021-03-13] MEDS: CARVEDILOL 3.125 MG TAB PO SCH ×2 (09:00→17:24)
[2021-03-13] MEDS: MULTIVITAMINS/MINERALS TAB PO SCH (09:00)
[2021-03-13] MEDS: FAMOTIDINE 20 MG TAB PO SCH (09:00)
[2021-03-13] MEDS: FERROUS SULFATE 325 MG TAB PO SCH (09:00)
[2021-03-13] MEDS: MEMANTINE 10 MG TAB PO SCH ×2 (09:00→17:24)
[2021-03-13] MEDS: BALSAM PERU/CASTOR OIL 60 GM OINT...G. TP SCH (09:00)
[2021-03-13] MEDS: SODIUM FERRIC GLUCONATE COMPLX 125 MG in SODIUM CHLORIDE 0.9% 100 ML 100 ML IV SCH (09:00)
[2021-03-13] MEDS ORDERED: SODIUM CHLORIDE 0.9% 250ML 250 ML ONE (09:47)
[2021-03-13] MEDS ORDERED: ONDANSETRON HCL 4 MG ORAL DISINTEGRATING TAB PO PRN (11:30)
[2021-03-13] MEDS: HYDROCODONE/APAP 5MG-325MG TAB PO PRN (17:25)
[2021-03-13] MEDS ORDERED: BALSAM PERU/CASTOR OIL 60 GM OINT...G. TP SCH (21:00)
== END 2021-03-13 21:12 | DRG 481 ==
LOC: ER 15:55 → ERHOLD 17:35 → MED/SURG 03-10 01:43
PROVIDERS: ADMIT Internal Medicine; ATTEND Internal Medicine
PROC: 0QH736Z Insertion of Intramedullary Internal Fixation Device into Left Upper Femur, Percutaneous Approach (ICD-10-PCS; principal; 2021-03-10 16:00)
PROC: 30233N1 Transfusion of Nonautologous Red Blood Cells into Peripheral Vein, Percutaneous Approach (ICD-10-PCS; 2021-03-13)
DX: M84.452A Pathological fracture, left femur, initial encounter for fracture (principal); N39.0 Urinary tract infection, site not specified; D62 Acute posthemorrhagic anemia; I10 Essential (primary) hypertension; G20 Parkinson's disease; F02.80 Dementia in other diseases classified elsewhere, unspecified severity, without behavioral disturbance, psychotic disturbance, mood disturbance, and anxiety; Z87.442 Personal history of urinary calculi; E66.01 Morbid (severe) obesity due to excess calories; I48.0 Paroxysmal atrial fibrillation; E83.51 Hypocalcemia; B96.20 Unspecified Escherichia coli [E. coli] as the cause of diseases classified elsewhere; D50.9 Iron deficiency anemia, unspecified; Z90.5 Acquired absence of kidney; Z86.73 Personal history of transient ischemic attack (TIA), and cerebral infarction without residual deficits; F41.9 Anxiety disorder, unspecified; R53.81 Other malaise; R26.89 Other abnormalities of gait and mobility; Z68.25 Body mass index [BMI] 25.0-25.9, adult; Z20.822 Contact with and (suspected) exposure to COVID-19; L89.622 Pressure ulcer of left heel, stage 2; L89.890 Pressure ulcer of other site, unstageable
CPT/HCPCS: 36415; 51700; 71045; 72192; 76000; 80048; 80053; 81001; 82550; 82553; 82948; 83540; 83605; 84443; 84466; 84484; 85014; 85018; 85025; 85610; 85730; 86850; 86870; 86880; 86900; 86905; 86920; 86922; 87040; 87086; 93005; 93306; 93970; 94799; 97139; 99001; 99251; 99284; C1713; J0610; J0690; J1644; J2001; J2270; J2405; J2543; J2710; J2916; J2997; J3010; J7030; J7050; P9016; U0002

== ENCOUNTER 2021-03-17 17:36 | Inpatient (IN) | payer MEDICARE, OTHER ==
[~2021-03-17] VITALS: Ht 162.6 cm; Wt 89.8 kg
[~2021-03-17 17:36] MED LIST changes: +ARGINAID POWDE1 EACH; +ASCORBIC ACID500 M2 PO; +ATORVASTATIN CA10 MG PO; +BUSPIRONE HCL5 MG PO; +DEXAMETHASONE SOD PHOS INJ 4 MG/ML SDV ONE; +ELIQUIS2.5 MG PO; +FEROSUL325 MG PO; +HYPROMELLOSE; +INVANZ1 GM; +LIDOCAINE HCL 2% LOCAL INJ 5 ML SDV VIAL INJ ONE; +MELATONIN3 MG PO; +ONDANSETRON HCL INJ 2MG/ML 2ML 2 MG/ML VIAL ONE; +PEPCID20 MG PO; +POVIDONE IODINE 0.05% 0.05 % ML PO ONE; +PROPOFOL IV EMULSION 10 MG/ML 20 ML VIAL ONE; +ROBITUSSIN COU118 M4 PO; +SENNA LAX8.6 MG PO; +SEVOFLURANE INHAL SOLN 250 ML PEN BTL ONE; +VITAMIN D350 MCG; +ZINC-22050 MG; +ZOFRAN4 MG PO
[2021-03-17 18:36] LABS: BASOPHILS # (AUTO) 0.1 (0.0-0.1); BASOPHILS % 0.2 % (0.0-1.0); EOSINOPHILS % 0.1 % (0.0-6.0); HEMATOCRIT 32.5 % (34.2-44.1); HEMOGLOBIN 9.9 g/dL (12.0-16.0); LYMPHOCYTES % 4.6 % (18.0-39.1); MEAN CORPUSCULAR HEMOGLOBIN 30.3 pg (28-32); MEAN CORPUSCULAR HGB CONC 30.5 g/dL (31-35); MEAN CORPUSCULAR VOLUME 99.4 fL (81-99); MONOCYTES % 4.7 % (4.4-11.3); NEUTROPHILS # (AUTO) 18.4 (2.1-6.9); NEUTROPHILS % 89.1 % (38.7-80.0); PLATELET COUNT 305 x10e3/uL (140-360); RED BLOOD COUNT 3.27 x10e6/uL (3.6-5.1); RED CELL DISTRIBUTION WIDTH 17.7 % (11.7-14.4)
[2021-03-17] MEDS ORDERED: FENTANYL CITRATE/PF 100MCG/2 ML INJ IV ONE (18:45)
[2021-03-17 19:02] LABS: INR 1.51; PROTHROMBIN TIME 19.4 seconds (11.9-14.5)
[2021-03-17 19:03] LABS: PARTIAL THROMBOPLASTIN TIME 39.4 seconds (23.8-35.5)
[2021-03-17 19:04] LABS: ALBUMIN 1.9 g/dL (3.5-5.0); ALBUMIN/GLOBULIN RATIO 0.6 (0.8-2.0); ANION GAP 13.6 mmol/L (8-16); CALCIUM 7.9 mg/dL (8.4-10.2); CREATININE, SERUM 0.79 mg/dL (0.57-1.11); POTASSIUM 3.6 mmol/L (3.5-5.1)
[2021-03-17] MEDS ORDERED: PIPERACILLIN/TAZOBACTAM 3.375 GM in SODIUM CHLORIDE 0.9% 50ML 50 ML IV STA (19:14)
[2021-03-17] MEDS ORDERED: Vancomycin IV 500 MG in SODIUM CHLORIDE 0.9% 100 ML 100 ML IV STA (19:14)
[2021-03-17] MEDS ORDERED: SODIUM CHLORIDE 0.9% 1000ML 1,000 ML IV STA ×2 (19:28→20:24)
[2021-03-17] MEDS ORDERED: IOPAMIDOL 370 MG/ML 200 ML INFUS..BTL INJ ONE (19:28)
[2021-03-17] MEDS ORDERED: SODIUM CHLORIDE 0.9% 50ML 50 ML ONE (19:28)
[2021-03-17] MEDS ORDERED: SODIUM CHLORIDE 0.9% 1000ML 1,000 ML ONE ×2 (19:39→23:27)
[2021-03-17] MEDS ORDERED: Vancomycin IV 1 GM in SODIUM CHLORIDE 0.9% 250ML 250 ML IV STA (20:24)
[2021-03-17 21:15] LABS: CLARITY,URINE TURBID (CLEAR); COLOR,URINE YELLOW (YELLOW); LEUKOCYTE ESTERASE ,URINE LARGE (NEGATIVE)
[2021-03-17 21:16] LABS: KETONES,URINE TRACE (NEGATIVE); NITRITE,URINE NEGATIVE (NEGATIVE); PROTEIN,URINE DIPSTICK 2+ (NEGATIVE); URINE UROBILINOGEN 0.2 mg/dL (0.2 - 1)
[2021-03-17 21:21] LABS: WBC,URINE (MAN) >50 /HPF (0-5)
[2021-03-17 21:22] LABS: BACTERIA,URINE MANY /HPF; CALCIUM OXALATE CRYSTALS,UR FEW (FEW); EPITHELIAL CELLS,URINE MODERATE /LPF; RBC,URINE >50 /HPF (0-5)
[2021-03-18] VITALS (17 sets, daily range): BP systolic 61–113; BP diastolic 35–66
[2021-03-18 05:56] LABS: BASOPHILS # (AUTO) 0.1 (0.0-0.1); BASOPHILS % 0.2 % (0.0-1.0); HEMATOCRIT 28.5 % (34.2-44.1); HEMOGLOBIN 8.6 g/dL (12.0-16.0); LYMPHOCYTES # (AUTO) 0.7 (1.0-3.2); LYMPHOCYTES % 2.5 % (18.0-39.1); MEAN CORPUSCULAR HGB CONC 30.2 g/dL (31-35); MEAN CORPUSCULAR VOLUME 99.3 fL (81-99); MONOCYTES # (AUTO) 0.9 (0.2-0.8); MONOCYTES % 3.1 % (4.4-11.3); NEUTROPHILS # (AUTO) 25.4 (2.1-6.9); NEUTROPHILS % 87.7 % (38.7-80.0); PLATELET COUNT 162 x10e3/uL (140-360); RED BLOOD COUNT 2.87 x10e6/uL (3.6-5.1)
[2021-03-18 06:27] LABS: ANION GAP 16.4 mmol/L (8-16); CALCIUM 7.2 mg/dL (8.4-10.2); CREATININE, SERUM 1.33 mg/dL (0.57-1.11); POTASSIUM 3.4 mmol/L (3.5-5.1)
[2021-03-18 09:03] LABS: BAND NEUTROPHILS % (MANUAL) 5 %; LYMPHOCYTES % (MANUAL) 4 % (19-48); MONOCYTES % (MANUAL) 8 % (3.4-9.0); NEUTROPHILS % (MANUAL) 83 % (40-74); PLATELET ESTIMATE ADEQUATE; PLATELET MORPHOLOGY COMMENT NORMAL; RBC MORPHOLOGY COMMENT NORMAL
[2021-03-18] MEDS ORDERED: MELATONIN 3 MG TAB PO PRN (10:45)
[2021-03-18] MEDS ORDERED: SODIUM CHLORIDE 0.9% 1000ML 1,000 ML IV SCH (11:00)
[2021-03-18] MEDS: FAMOTIDINE 20 MG TAB PO SCH (11:00)
[2021-03-18] MEDS ORDERED: ONDANSETRON HCL INJ 2MG/ML 2ML 2 MG/ML VIAL IV PRN (11:00)
[2021-03-18] MEDS ORDERED: PIPERACILLIN/TAZOBACTAM 3.375 GM in SODIUM CHLORIDE 0.9% 50ML 50 ML IV SCH ×2 (12:00→20:00)
[2021-03-18] MEDS ORDERED: IOPAMIDOL 300MG/ML 50ML INFUS..BTL IV ONE (12:48)
[2021-03-18] MEDS ORDERED: BELLADONNA/OPIUM 30 MG SUPP RC ONE (12:48)
[2021-03-18] MEDS ORDERED: SODIUM CHLORIDE 0.9% 100 ML ONE (13:01)
[2021-03-18] MEDS ORDERED: MIDAZOLAM HCL 2 MG/2 ML VIAL ONE (13:31)
[2021-03-18] MEDS ORDERED: FENTANYL CITRATE/PF 100MCG/2 ML INJ ONE (13:31)
[2021-03-18] MEDS: BUSPIRONE HCL 5 MG TAB PO SCH ×2 (14:34→21:00)
[2021-03-18] MEDS ORDERED: ACETAMINOPHEN 1000 MG/100 ML IV PRN (16:00)
[2021-03-18] MEDS ORDERED: CALCIUM CHLORIDE 13.6 MEQ in SODIUM CHLORIDE 0.9% 100 ML 100 ML IV ONE (16:00)
[2021-03-18] MEDS: MEMANTINE 10 MG TAB PO SCH (17:00)
[2021-03-18] MEDS: CARVEDILOL 3.125 MG TAB PO SCH (17:00)
[2021-03-18] MEDS: LACTATED RINGER'S 1,000 ML INJ SCH (17:23)
[2021-03-18] MEDS: MEROPENEM 1 GM in SODIUM CHLORIDE 0.9% 100 ML IV SCH (17:23)
[2021-03-18] MEDS ORDERED: CALCIUM GLUCONATE 10% INJ 4.65 MEQ in SODIUM CHLORIDE 0.9% 50ML 50 ML IV ONE (17:30)
[2021-03-18] MEDS ORDERED: SODIUM CHLORIDE 0.9% IV ONE (18:30)
[2021-03-18] MEDS ORDERED: NOREPINEPHRINE 8 MG/D5W 250 ML 250 ML ONE (20:31)
[2021-03-18] MEDS: DONEPEZIL HCL 5 MG TAB PO SCH (21:00)
[2021-03-18] MEDS: ROPINIROLE HCL 0.25 MG TAB PO SCH (21:00)
[2021-03-18] MEDS: NOREPINEPHRINE 8 MG/D5W 250 ML 250 ML IV SCH (21:06)
[2021-03-18 21:14] LABS: HEMATOCRIT 31.7 % (34.2-44.1); HEMOGLOBIN 9.4 g/dL (12.0-16.0); LYMPHOCYTES # (AUTO) 2.2 (1.0-3.2); LYMPHOCYTES % 4.5 % (18.0-39.1); MEAN CORPUSCULAR HEMOGLOBIN 30.2 pg (28-32); MEAN CORPUSCULAR HGB CONC 29.7 g/dL (31-35); MEAN CORPUSCULAR VOLUME 101.9 fL (81-99); MONOCYTES # (AUTO) 1.5 (0.2-0.8); MONOCYTES % 3.2 % (4.4-11.3); NEUTROPHILS # (AUTO) 40.6 (2.1-6.9); NEUTROPHILS % 84.3 % (38.7-80.0); PLATELET COUNT 148 x10e3/uL (140-360); RED BLOOD COUNT 3.11 x10e6/uL (3.6-5.1); RED CELL DISTRIBUTION WIDTH 18.5 % (11.7-14.4)
[2021-03-18 21:38] LABS: CALCIUM 7.1 mg/dL (8.4-10.2); CREATININE, SERUM 1.5 mg/dL (0.57-1.11)
[2021-03-19] VITALS (24 sets, daily range): BP systolic 82–126; BP diastolic 43–88
[2021-03-19] MEDS: LACTATED RINGER'S 1,000 ML INJ SCH ×3 (02:48→17:02)
[2021-03-19] MEDS: MEROPENEM 1 GM in SODIUM CHLORIDE 0.9% 100 ML IV SCH ×2 (05:23→17:05)
[2021-03-19 05:46] LABS: HEMOGLOBIN 8.9 g/dL (12.0-16.0); LYMPHOCYTES # (AUTO) 1.7 (1.0-3.2); LYMPHOCYTES % 3.1 % (18.0-39.1); MEAN CORPUSCULAR HEMOGLOBIN 30.4 pg (28-32); MEAN CORPUSCULAR HGB CONC 30.7 g/dL (31-35); MONOCYTES # (AUTO) 1.9 (0.2-0.8); MONOCYTES % 3.5 % (4.4-11.3); NEUTROPHILS # (AUTO) 45.4 (2.1-6.9); NEUTROPHILS % 84.1 % (38.7-80.0); PLATELET COUNT 143 x10e3/uL (140-360); RED BLOOD COUNT 2.93 x10e6/uL (3.6-5.1)
[2021-03-19 06:07] LABS: ALBUMIN 1.5 g/dL (3.5-5.0); ALBUMIN/GLOBULIN RATIO 0.5 (0.8-2.0); ANION GAP 14.7 mmol/L (8-16); CREATININE, SERUM 1.24 mg/dL (0.57-1.11); POTASSIUM 3.7 mmol/L (3.5-5.1)
[2021-03-19] MEDS: CARVEDILOL 3.125 MG TAB PO SCH ×2 (09:00→16:53)
[2021-03-19 09:09] LABS: BAND NEUTROPHILS % (MANUAL) 4 %; LYMPHOCYTES % (MANUAL) 2 % (19-48); MONOCYTES % (MANUAL) 6 % (3.4-9.0); NEUTROPHILS % (MANUAL) 88 % (40-74)
[2021-03-19 09:10] LABS: HYPOCHROMASIA SLIGHT; PLATELET ESTIMATE SLIGHTLY DECREASED; PLATELET MORPHOLOGY COMMENT NORMAL; RBC MORPHOLOGY COMMENT NORMAL
[2021-03-19] MEDS: BUSPIRONE HCL 5 MG TAB PO SCH ×3 (10:34→21:00)
[2021-03-19] MEDS: MEMANTINE 10 MG TAB PO SCH ×2 (10:35→16:54)
[2021-03-19] MEDS: FAMOTIDINE 20 MG TAB PO SCH (10:35)
[2021-03-19] MEDS: MULTIVITAMINS/MINERALS TAB PO SCH (10:35)
[2021-03-19] MEDS: DONEPEZIL HCL 5 MG TAB PO SCH (21:00)
[2021-03-19] MEDS: ROPINIROLE HCL 0.25 MG TAB PO SCH (21:00)
[2021-03-20] VITALS (24 sets, daily range): BP systolic 79–124; BP diastolic 44–76
[2021-03-20] MEDS: LACTATED RINGER'S 1,000 ML INJ SCH ×4 (02:00→22:19)
[2021-03-20] MEDS: Morphine 4mg Syringe 4 MG/ML INJ IV PRN ×2 (03:41→23:54)
[2021-03-20] MEDS: MEROPENEM 1 GM in SODIUM CHLORIDE 0.9% 100 ML IV SCH ×2 (05:50→17:38)
[2021-03-20] MEDS: CARVEDILOL 3.125 MG TAB PO SCH ×2 (08:38→15:51)
[2021-03-20] MEDS: BUSPIRONE HCL 5 MG TAB PO SCH ×3 (08:38→20:32)
[2021-03-20] MEDS: FAMOTIDINE 20 MG TAB PO SCH (08:39)
[2021-03-20] MEDS: COLLAGENASE 5 GM TUBE TP SCH (08:39)
[2021-03-20] MEDS: MEMANTINE 10 MG TAB PO SCH ×2 (08:39→17:38)
[2021-03-20] MEDS: MULTIVITAMINS/MINERALS TAB PO SCH (08:39)
[2021-03-20] MEDS: ACETAMINOPHEN 325 MG TAB PO PRN (12:46)
[2021-03-20 15:01] LABS: BASOPHILS # (AUTO) 0.2 (0.0-0.1); BASOPHILS % 0.3 % (0.0-1.0); HEMATOCRIT 24.1 % (34.2-44.1); HEMOGLOBIN 7.4 g/dL (12.0-16.0); LYMPHOCYTES # (AUTO) 2.1 (1.0-3.2); LYMPHOCYTES % 4.5 % (18.0-39.1); MEAN CORPUSCULAR HGB CONC 30.7 g/dL (31-35); MEAN CORPUSCULAR VOLUME 97.6 fL (81-99); MONOCYTES # (AUTO) 1.3 (0.2-0.8); MONOCYTES % 2.8 % (4.4-11.3); NEUTROPHILS # (AUTO) 41.1 (2.1-6.9); PLATELET COUNT 71 x10e3/uL (140-360); RED BLOOD COUNT 2.47 x10e6/uL (3.6-5.1); RED CELL DISTRIBUTION WIDTH 17.9 % (11.7-14.4)
[2021-03-20] MEDS: NOREPINEPHRINE 8 MG/D5W 250 ML 250 ML IV SCH ×4 (19:42→23:30)
[2021-03-20] MEDS: ROPINIROLE HCL 0.25 MG TAB PO SCH (20:32)
[2021-03-20] MEDS: DONEPEZIL HCL 5 MG TAB PO SCH (20:32)
[2021-03-21] VITALS (25 sets, daily range): BP systolic 93–140; BP diastolic 45–93
[2021-03-21 05:51] LABS: BASOPHILS # (AUTO) 0.1 (0.0-0.1); BASOPHILS % 0.3 % (0.0-1.0); EOSINOPHILS # (AUTO) 0.2 (0.0-0.4); EOSINOPHILS % 0.5 % (0.0-6.0); HEMATOCRIT 25.7 % (34.2-44.1); HEMOGLOBIN 7.9 g/dL (12.0-16.0); LYMPHOCYTES # (AUTO) 2.8 (1.0-3.2); LYMPHOCYTES % 8.6 % (18.0-39.1); MEAN CORPUSCULAR HEMOGLOBIN 29.8 pg (28-32); MEAN CORPUSCULAR HGB CONC 30.7 g/dL (31-35); MONOCYTES # (AUTO) 1.2 (0.2-0.8); MONOCYTES % 3.7 % (4.4-11.3); NEUTROPHILS # (AUTO) 27.8 (2.1-6.9); NEUTROPHILS % 85.7 % (38.7-80.0); PLATELET COUNT 71 x10e3/uL (140-360); RED BLOOD COUNT 2.65 x10e6/uL (3.6-5.1); RED CELL DISTRIBUTION WIDTH 18.2 % (11.7-14.4)
[2021-03-21] MEDS: MEROPENEM 1 GM in SODIUM CHLORIDE 0.9% 100 ML IV SCH ×2 (06:14→17:17)
[2021-03-21 06:15] LABS: ALBUMIN 1.4 g/dL (3.5-5.0); ALBUMIN/GLOBULIN RATIO 0.5 (0.8-2.0); CALCIUM 7.8 mg/dL (8.4-10.2); CREATININE, SERUM 0.67 mg/dL (0.57-1.11)
[2021-03-21] MEDS ORDERED: DEXTROSE 50% SYRINGE 50 ML IV PRN (06:30)
[2021-03-21] MEDS: FAMOTIDINE 20 MG TAB PO SCH (08:53)
[2021-03-21] MEDS: CARVEDILOL 3.125 MG TAB PO SCH ×2 (08:53→17:16)
[2021-03-21] MEDS: COLLAGENASE 5 GM TUBE TP SCH (08:53)
[2021-03-21] MEDS: MULTIVITAMINS/MINERALS TAB PO SCH (08:53)
[2021-03-21] MEDS: BUSPIRONE HCL 5 MG TAB PO SCH ×3 (08:53→21:46)
[2021-03-21] MEDS: MEMANTINE 10 MG TAB PO SCH ×2 (08:53→17:17)
[2021-03-21] MEDS ORDERED: POTASSIUM CHLORIDE 20MEQ/100ML 200 ML IV ONE (09:30)
[2021-03-21] MEDS: Morphine 4mg Syringe 4 MG/ML INJ IV PRN ×2 (13:37→21:28)
[2021-03-21] MEDS ORDERED: FUROSEMIDE INJ 10 MG/ML 2 ML VIAL IV ONE (14:00)
[2021-03-21] MEDS: FLUCONAZOLE 200 MG/100 ML 100 ML IV SCH (17:16)
[2021-03-21] MEDS: DONEPEZIL HCL 5 MG TAB PO SCH (21:46)
[2021-03-21] MEDS: ROPINIROLE HCL 0.25 MG TAB PO SCH (21:46)
[2021-03-22] VITALS (21 sets, daily range): BP systolic 80–119; BP diastolic 43–78
[2021-03-22] MEDS: Morphine 4mg Syringe 4 MG/ML INJ IV PRN ×2 (04:40→08:46)
[2021-03-22] MEDS: MEROPENEM 1 GM in SODIUM CHLORIDE 0.9% 100 ML IV SCH ×2 (05:08→17:16)
[2021-03-22 05:28] LABS: BASOPHILS # (AUTO) 0.1 (0.0-0.1); BASOPHILS % 0.3 % (0.0-1.0); EOSINOPHILS # (AUTO) 0.5 (0.0-0.4); EOSINOPHILS % 2.2 % (0.0-6.0); HEMATOCRIT 28.3 % (34.2-44.1); HEMOGLOBIN 8.5 g/dL (12.0-16.0); LYMPHOCYTES # (AUTO) 3.3 (1.0-3.2); LYMPHOCYTES % 15.3 % (18.0-39.1); MEAN CORPUSCULAR HEMOGLOBIN 29.7 pg (28-32); MONOCYTES # (AUTO) 1.6 (0.2-0.8); MONOCYTES % 7.1 % (4.4-11.3); NEUTROPHILS # (AUTO) 15.9 (2.1-6.9); NEUTROPHILS % 72.8 % (38.7-80.0); PLATELET COUNT 84 x10e3/uL (140-360); RED BLOOD COUNT 2.86 x10e6/uL (3.6-5.1); RED CELL DISTRIBUTION WIDTH 17.9 % (11.7-14.4)
[2021-03-22 05:44] LABS: ALBUMIN 1.6 g/dL (3.5-5.0); ALBUMIN/GLOBULIN RATIO 0.6 (0.8-2.0); ANION GAP 10.6 mmol/L (8-16); CALCIUM 7.9 mg/dL (8.4-10.2); CREATININE, SERUM 0.61 mg/dL (0.57-1.11); POTASSIUM 3.6 mmol/L (3.5-5.1)
[2021-03-22] MEDS: POTASSIUM CHLORIDE 20 MEQ TAB CR PO SCH (07:50)
[2021-03-22] MEDS: ACETAMINOPHEN 325 MG TAB PO PRN (07:51)
[2021-03-22] MEDS: BUSPIRONE HCL 5 MG TAB PO SCH ×3 (08:17→21:00)
[2021-03-22] MEDS: MEMANTINE 10 MG TAB PO SCH ×2 (08:18→17:16)
[2021-03-22] MEDS: FAMOTIDINE 20 MG TAB PO SCH (08:18)
[2021-03-22] MEDS: COLLAGENASE 5 GM TUBE TP SCH (08:18)
[2021-03-22] MEDS: MULTIVITAMINS/MINERALS TAB PO SCH (08:18)
[2021-03-22] MEDS: CARVEDILOL 3.125 MG TAB PO SCH ×2 (08:18→17:00)
[2021-03-22] MEDS ORDERED: FUROSEMIDE INJ 10 MG/ML 2 ML VIAL IV SCH (09:00)
[2021-03-22] MEDS: FLUCONAZOLE 200 MG/100 ML 100 ML IV SCH (17:15)
[2021-03-22] MEDS: HYDROCODONE/APAP 7.5MG-325MG 1 EA TAB PO PRN (18:32)
[2021-03-22] MEDS: DONEPEZIL HCL 5 MG TAB PO SCH (21:00)
[2021-03-22] MEDS: ROPINIROLE HCL 0.25 MG TAB PO SCH (21:00)
[2021-03-23] VITALS (7 sets, daily range): BP systolic 91–121; BP diastolic 59–98
[2021-03-23] MEDS: Morphine 4mg Syringe 4 MG/ML INJ IV PRN ×2 (04:09→12:48)
[2021-03-23] MEDS ORDERED: SODIUM CHLORIDE 0.9% 250ML 250 ML ONE (06:10)
[2021-03-23] MEDS: MEROPENEM 1 GM in SODIUM CHLORIDE 0.9% 100 ML IV SCH ×2 (06:15→18:37)
[2021-03-23 06:40] LABS: BASOPHILS # (AUTO) 0.1 (0.0-0.1); BASOPHILS % 0.4 % (0.0-1.0); EOSINOPHILS # (AUTO) 0.5 (0.0-0.4); EOSINOPHILS % 2.5 % (0.0-6.0); HEMATOCRIT 25.8 % (34.2-44.1); HEMOGLOBIN 7.9 g/dL (12.0-16.0); LYMPHOCYTES # (AUTO) 2.8 (1.0-3.2); LYMPHOCYTES % 15.2 % (18.0-39.1); MEAN CORPUSCULAR HEMOGLOBIN 29.3 pg (28-32); MEAN CORPUSCULAR HGB CONC 30.6 g/dL (31-35); MEAN CORPUSCULAR VOLUME 95.6 fL (81-99); MONOCYTES # (AUTO) 1.5 (0.2-0.8); MONOCYTES % 7.9 % (4.4-11.3); NEUTROPHILS # (AUTO) 13.4 (2.1-6.9); NEUTROPHILS % 71.9 % (38.7-80.0); PLATELET COUNT 115 x10e3/uL (140-360); RED CELL DISTRIBUTION WIDTH 17.6 % (11.7-14.4)
[2021-03-23 07:00] LABS: ALBUMIN 1.6 g/dL (3.5-5.0); ALBUMIN/GLOBULIN RATIO 0.6 (0.8-2.0); ANION GAP 7.7 mmol/L (8-16); CALCIUM 7.5 mg/dL (8.4-10.2); CREATININE, SERUM 0.58 mg/dL (0.57-1.11); POTASSIUM 3.7 mmol/L (3.5-5.1)
[2021-03-23] MEDS: CARVEDILOL 3.125 MG TAB PO SCH ×2 (09:00→16:39)
[2021-03-23] MEDS: BUSPIRONE HCL 5 MG TAB PO SCH ×3 (09:46→20:42)
[2021-03-23] MEDS: FUROSEMIDE 20 MG TAB PO SCH (09:47)
[2021-03-23] MEDS: FAMOTIDINE 20 MG TAB PO SCH (09:47)
[2021-03-23] MEDS: POTASSIUM CHLORIDE 20 MEQ TAB CR PO SCH (09:47)
[2021-03-23] MEDS: MULTIVITAMINS/MINERALS TAB PO SCH (09:47)
[2021-03-23] MEDS: MEMANTINE 10 MG TAB PO SCH ×2 (09:47→16:39)
[2021-03-23] MEDS: COLLAGENASE 5 GM TUBE TP SCH (09:48)
[2021-03-23] MEDS: HYDROCODONE/APAP 7.5MG-325MG 1 EA TAB PO PRN (15:34)
[2021-03-23] MEDS: FLUCONAZOLE 200 MG/100 ML 100 ML IV SCH (16:39)
[2021-03-23] MEDS: DONEPEZIL HCL 5 MG TAB PO SCH (20:42)
[2021-03-23] MEDS: ROPINIROLE HCL 0.25 MG TAB PO SCH (20:42)
[2021-03-24 00:30] VITALS: BP 111/73
[2021-03-24 05:01] LABS: BASOPHILS # (AUTO) 0.1 (0.0-0.1); BASOPHILS % 0.4 % (0.0-1.0); EOSINOPHILS # (AUTO) 0.5 (0.0-0.4); EOSINOPHILS % 3.2 % (0.0-6.0); HEMATOCRIT 25.1 % (34.2-44.1); HEMOGLOBIN 7.6 g/dL (12.0-16.0); LYMPHOCYTES # (AUTO) 2.4 (1.0-3.2); LYMPHOCYTES % 15.7 % (18.0-39.1); MEAN CORPUSCULAR HEMOGLOBIN 29.5 pg (28-32); MEAN CORPUSCULAR HGB CONC 30.3 g/dL (31-35); MEAN CORPUSCULAR VOLUME 97.3 fL (81-99); MONOCYTES # (AUTO) 1.1 (0.2-0.8); MONOCYTES % 6.8 % (4.4-11.3); NEUTROPHILS # (AUTO) 11.1 (2.1-6.9); NEUTROPHILS % 72.1 % (38.7-80.0); PLATELET COUNT 136 x10e3/uL (140-360); RED BLOOD COUNT 2.58 x10e6/uL (3.6-5.1); RED CELL DISTRIBUTION WIDTH 17.9 % (11.7-14.4)
[2021-03-24] MEDS: MEROPENEM 1 GM in SODIUM CHLORIDE 0.9% 100 ML IV SCH (05:02)
[2021-03-24 05:19] VITALS: BP 130/66
[2021-03-24 05:22] LABS: ALBUMIN 1.6 g/dL (3.5-5.0); ALBUMIN/GLOBULIN RATIO 0.6 (0.8-2.0); ANION GAP 10.6 mmol/L (8-16); CALCIUM 7.8 mg/dL (8.4-10.2); CREATININE, SERUM 0.56 mg/dL (0.57-1.11); POTASSIUM 3.6 mmol/L (3.5-5.1)
[2021-03-24 08:03] VITALS: BP 132/100
[2021-03-24 08:09] VITALS: BP 132/100
[2021-03-24] MEDS: FUROSEMIDE 20 MG TAB PO SCH (09:33)
[2021-03-24] MEDS: POTASSIUM CHLORIDE 20 MEQ TAB CR PO SCH (09:33)
[2021-03-24] MEDS: BUSPIRONE HCL 5 MG TAB PO SCH (09:33)
[2021-03-24] MEDS: FAMOTIDINE 20 MG TAB PO SCH (09:34)
[2021-03-24] MEDS: MEMANTINE 10 MG TAB PO SCH (09:34)
[2021-03-24] MEDS: MULTIVITAMINS/MINERALS TAB PO SCH (09:34)
[2021-03-24] MEDS: CARVEDILOL 3.125 MG TAB PO SCH (09:34)
[2021-03-24] MEDS: HYDROCODONE/APAP 7.5MG-325MG 1 EA TAB PO PRN (09:35)
[2021-03-24] MEDS: COLLAGENASE 5 GM TUBE TP SCH (12:47)
[2021-03-24 13:05] VITALS: BP 123/73
[2021-03-24] MEDS ORDERED: FAMOTIDINE20 MG PO (13:12)
[2021-03-24] MEDS ORDERED: SODIUM FERRIC GLUCONATE COMPLX 125 MG in SODIUM CHLORIDE 0.9% 100 ML 100 ML IV SCH (14:00)
[2021-03-24] MEDS ORDERED: ONDANSETRON HCL 4 MG ORAL DISINTEGRATING TAB PO PRN (14:15)
== END 2021-03-24 16:05 | DRG 853 ==
LOC: ER 17:50 → ERHOLD 21:30 → MED/SURG2 23:05 → IMCU 03-18 17:46 → ICU 03-18 20:55 → MED/SURG3 03-23 01:46
PROVIDERS: ADMIT Internal Medicine; ATTEND Internal Medicine
PROC: 0T778DZ Dilation of Left Ureter with Intraluminal Device, Via Natural or Artificial Opening Endoscopic (ICD-10-PCS; 2021-03-18)
PROC: 0TCB8ZZ Extirpation of Matter from Bladder, Via Natural or Artificial Opening Endoscopic (ICD-10-PCS; 2021-03-18)
PROC: 02HV33Z Insertion of Infusion Device into Superior Vena Cava, Percutaneous Approach (ICD-10-PCS; 2021-03-18)
PROC: 3E033XZ Introduction of Vasopressor into Peripheral Vein, Percutaneous Approach (ICD-10-PCS; 2021-03-18)
PROC: BT1F1ZZ Fluoroscopy of Left Kidney, Ureter and Bladder using Low Osmolar Contrast (ICD-10-PCS; principal; 2021-03-18 12:00)
DX: A41.51 Sepsis due to Escherichia coli [E. coli] (principal); R65.21 Severe sepsis with septic shock; G92.8 Other toxic encephalopathy; N17.9 Acute kidney failure, unspecified; N13.0 Hydronephrosis with ureteropelvic junction obstruction; Z16.12 Extended spectrum beta lactamase (ESBL) resistance; L97.829 Non-pressure chronic ulcer of other part of left lower leg with unspecified severity; E44.1 Mild protein-calorie malnutrition; E87.1 Hypo-osmolality and hyponatremia; G20 Parkinson's disease; F02.80 Dementia in other diseases classified elsewhere, unspecified severity, without behavioral disturbance, psychotic disturbance, mood disturbance, and anxiety; I10 Essential (primary) hypertension; G25.81 Restless legs syndrome; N21.0 Calculus in bladder; N32.3 Diverticulum of bladder; N95.2 Postmenopausal atrophic vaginitis; I48.0 Paroxysmal atrial fibrillation; E83.51 Hypocalcemia; D50.9 Iron deficiency anemia, unspecified; E87.6 Hypokalemia; R62.7 Adult failure to thrive; Z86.73 Personal history of transient ischemic attack (TIA), and cerebral infarction without residual deficits; Z90.5 Acquired absence of kidney; R13.11 Dysphagia, oral phase; E87.70 Fluid overload, unspecified; Z66 Do not resuscitate; N18.9 Chronic kidney disease, unspecified; L97.529 Non-pressure chronic ulcer of other part of left foot with unspecified severity
CPT/HCPCS: 36415; 36569; 71045; 71260; 74177; 74420; 80048; 80053; 81001; 82948; 83605; 83880; 85025; 85610; 85730; 87040; 87071; 87086; 87186; 87205; 88300; 93971; 96360; 99251; 99283; C1758; C1769; C2617; J0610; J1100; J1450; J1940; J2001; J2185; J2250; J2270; J2405; J2543; J2916; J3010; J3370; J3480; J7030; J7050; J7121; J7799; Q9967; U0002

== ENCOUNTER → 2021-05-06 | Day surgery (SDC) | payer MEDICARE, OTHER ==
[~2021-05-06] MED LIST changes: +ARGINAID POWDE1 EACH PO; +CEFTRIAXONE 1 GM VIAL ONE; +FAMOTIDINE20 MG PO; +HYDROCODON-ACE1 EA12 PO; +MIRALAX17 GM PO; -SEVOFLURANE INHAL SOLN 250 ML PEN BTL ONE; +SODIUM CHLORIDE 0.9% 50ML 50 ML ONE; -VITAMIN D350 MCG; +VITAMIN D350 MCG PO; +ZINC-22050 MG PO
[2021-05-06 08:59] LABS: BASOPHILS # (AUTO) 0.1 (0.0-0.1); BASOPHILS % 0.8 % (0.0-1.0); EOSINOPHILS # (AUTO) 0.4 (0.0-0.4); HEMATOCRIT 39.2 % (34.2-44.1); HEMOGLOBIN 11.8 g/dL (12.0-16.0); LYMPHOCYTES # (AUTO) 2.6 (1.0-3.2); LYMPHOCYTES % 29.5 % (18.0-39.1); MEAN CORPUSCULAR HEMOGLOBIN 29.3 pg (28-32); MEAN CORPUSCULAR HGB CONC 30.1 g/dL (31-35); MEAN CORPUSCULAR VOLUME 97.3 fL (81-99); MONOCYTES # (AUTO) 0.8 (0.2-0.8); MONOCYTES % 8.5 % (4.4-11.3); PLATELET COUNT 251 x10e3/uL (140-360); RED BLOOD COUNT 4.03 x10e6/uL (3.6-5.1); RED CELL DISTRIBUTION WIDTH 15.3 % (11.7-14.4)
[2021-05-06 09:14] LABS: ANION GAP 12.4 mmol/L (8-16); CALCIUM 8.9 mg/dL (8.4-10.2); CREATININE, SERUM 0.66 mg/dL (0.57-1.11); POTASSIUM 3.4 mmol/L (3.5-5.1)
[2021-05-06 11:30] VITALS: BP 120/68
== END | disposition home or self-care (01) ==
LOC: OR 07:32
PROVIDERS: ATTEND Urology
DX: N20.1 Calculus of ureter (principal); Z96.0 Presence of urogenital implants; Q60.0 Renal agenesis, unilateral; I50.9 Heart failure, unspecified; I48.91 Unspecified atrial fibrillation; E78.6 Lipoprotein deficiency; G20 Parkinson's disease; F03.90 Unspecified dementia, unspecified severity, without behavioral disturbance, psychotic disturbance, mood disturbance, and anxiety; Z20.822 Contact with and (suspected) exposure to COVID-19; Z79.899 Other long term (current) drug therapy
CPT/HCPCS: 36415; 50590; 71046; 74018; 80048; 84550; 85025; J0696; J1100; J2001; J2405; J2704; U0002

== ENCOUNTER → 2021-06-17 | Day surgery (SDC) | payer MEDICARE ==
[~2021-06-17] MED LIST changes: +BELLADONNA/OPIUM 30 MG SUPP RC ONE; -DEXAMETHASONE SOD PHOS INJ 4 MG/ML SDV ONE; +GENTAMICIN 80MG/NS 100 ML 100 ML IV ONE; +IOPAMIDOL 300MG/ML 50ML INFUS..BTL IV ONE; +PIPERACILLIN/TAZOBACTAM 3.375 GM VIAL ONE; +SEVOFLURANE INHAL SOLN 250 ML PEN BTL ONE; +SODIUM CHLORIDE 0.9% 50ML 0 ML ONE
[2021-06-17 08:16] LABS: BASOPHILS # (AUTO) 0.1 (0.0-0.1); BASOPHILS % 0.8 % (0.0-1.0); EOSINOPHILS # (AUTO) 0.4 (0.0-0.4); EOSINOPHILS % 4.5 % (0.0-6.0); HEMATOCRIT 37.3 % (34.2-44.1); HEMOGLOBIN 11.5 g/dL (12.0-16.0); LYMPHOCYTES # (AUTO) 2.3 (1.0-3.2); LYMPHOCYTES % 26.4 % (18.0-39.1); MEAN CORPUSCULAR HEMOGLOBIN 29.5 pg (28-32); MEAN CORPUSCULAR HGB CONC 30.8 g/dL (31-35); MEAN CORPUSCULAR VOLUME 95.6 fL (81-99); MONOCYTES # (AUTO) 0.7 (0.2-0.8); MONOCYTES % 8.5 % (4.4-11.3); NEUTROPHILS # (AUTO) 5.1 (2.1-6.9); NEUTROPHILS % 59.5 % (38.7-80.0); PLATELET COUNT 296 x10e3/uL (140-360); RED CELL DISTRIBUTION WIDTH 15.7 % (11.7-14.4)
[2021-06-17 08:32] LABS: ANION GAP 12.3 mmol/L (8-16); CALCIUM 8.9 mg/dL (8.4-10.2); CREATININE, SERUM 0.68 mg/dL (0.57-1.11); POTASSIUM 4.3 mmol/L (3.5-5.1)
[2021-06-17 12:10] VITALS: BP 114/56
== END | disposition home or self-care (01) ==
LOC: OR 07:57
PROVIDERS: ATTEND Urology
DX: N20.0 Calculus of kidney (principal); N13.30 Unspecified hydronephrosis; N20.1 Calculus of ureter; Z46.6 Encounter for fitting and adjustment of urinary device; N81.6 Rectocele; N28.89 Other specified disorders of kidney and ureter; N39.0 Urinary tract infection, site not specified; N39.44 Nocturnal enuresis; N95.2 Postmenopausal atrophic vaginitis; N32.3 Diverticulum of bladder; Z90.5 Acquired absence of kidney; N39.46 Mixed incontinence; I11.0 Hypertensive heart disease with heart failure; I50.9 Heart failure, unspecified; I48.91 Unspecified atrial fibrillation; G20 Parkinson's disease; F02.80 Dementia in other diseases classified elsewhere, unspecified severity, without behavioral disturbance, psychotic disturbance, mood disturbance, and anxiety; Z20.822 Contact with and (suspected) exposure to COVID-19; Z79.899 Other long term (current) drug therapy
CPT/HCPCS: 36415; 52332; 52352; 74018; 74420; 80048; 84550; 85025; 87086; 87186; 88300; 93005; C1766; C1769; C2617; J1580; J2001; J2405; J2543; J2704; Q9967; U0002; J0696

== ENCOUNTER → 2022-07-09 | Outpatient (CLI) | payer MEDICARE ==
[~2022-07-09] MED LIST changes: -BELLADONNA/OPIUM 30 MG SUPP RC ONE; -CEFTRIAXONE 1 GM VIAL ONE; -GENTAMICIN 80MG/NS 100 ML 100 ML IV ONE; -IOPAMIDOL 300MG/ML 50ML INFUS..BTL IV ONE; -LIDOCAINE HCL 2% LOCAL INJ 5 ML SDV VIAL INJ ONE; -ONDANSETRON HCL INJ 2MG/ML 2ML 2 MG/ML VIAL ONE; -PIPERACILLIN/TAZOBACTAM 3.375 GM VIAL ONE; -POVIDONE IODINE 0.05% 0.05 % ML PO ONE; -PROPOFOL IV EMULSION 10 MG/ML 20 ML VIAL ONE; -SEVOFLURANE INHAL SOLN 250 ML PEN BTL ONE; -SODIUM CHLORIDE 0.9% 50ML 0 ML ONE; -SODIUM CHLORIDE 0.9% 50ML 50 ML ONE
== END ==
LOC: CT 12:45
PROVIDERS: ATTEND Urology
DX: N20.0 Calculus of kidney (principal)
CPT/HCPCS: 74176

== ENCOUNTER 2022-08-24 11:15 | Inpatient (IN) | payer MEDICARE, MEDICAID ==
[~2022-08-24] VITALS: Ht 162.6 cm; Wt 89.8 kg
[2022-08-24 13:07] LABS: BASOPHILS # (AUTO) 0.1 (0.0-0.1); BASOPHILS % 0.8 % (0.0-1.0); EOSINOPHILS # (AUTO) 0.3 (0.0-0.4); EOSINOPHILS % 4.1 % (0.0-6.0); HEMATOCRIT 26.9 % (34.2-44.1); HEMOGLOBIN 8.6 g/dL (12.0-16.0); LYMPHOCYTES # (AUTO) 2.1 (1.0-3.2); LYMPHOCYTES % 26.8 % (18.0-39.1); MEAN CORPUSCULAR HEMOGLOBIN 30.9 pg (28-32); MEAN CORPUSCULAR VOLUME 96.8 fL (81-99); MONOCYTES # (AUTO) 0.9 (0.2-0.8); NEUTROPHILS # (AUTO) 4.3 (2.1-6.9); PLATELET COUNT 174 x10e3/uL (140-360); RED BLOOD COUNT 2.78 x10e6/uL (3.6-5.1); RED CELL DISTRIBUTION WIDTH 13.3 % (11.7-14.4)
[2022-08-24 13:29] LABS: ANION GAP 12.9 mmol/L (8-16); CALCIUM 8.7 mg/dL (8.4-10.2); CREATININE, SERUM 0.58 mg/dL (0.57-1.11); POTASSIUM 3.9 mmol/L (3.5-5.1)
[2022-08-24] MEDS ORDERED: Morphine 2mg Syringe 2 MG/ML SYR IV PRN ×2 (14:45→22:45)
[2022-08-24] MEDS ORDERED: ONDANSETRON HCL INJ 2MG/ML 2ML 2 MG/ML VIAL IV PRN (14:45)
[2022-08-24 15:01] LABS: CREATINE KINASE 78 IU/L (29-168)
[2022-08-24] MEDS: SODIUM CHLORIDE 0.9% 1000ML 1,000 ML IV SCH (17:43)
[2022-08-24 21:00] VITALS: BP 141/97
[2022-08-24 21:10] VITALS: BP 141/97
[2022-08-24] MEDS: Morphine 2mg Syringe 2 MG/ML SYR IV SCH (21:19)
[2022-08-24 22:04] VITALS: BP 141/97
[2022-08-24] MEDS: BUSPIRONE HCL 5 MG TAB PO SCH (23:38)
[2022-08-24] MEDS: ROPINIROLE HCL 0.25 MG TAB PO SCH (23:38)
[2022-08-24] MEDS: MELATONIN 3 MG TAB PO SCH (23:38)
[2022-08-24] MEDS: MEMANTINE 10 MG TAB PO SCH (23:38)
[2022-08-24] MEDS: DONEPEZIL HCL 5 MG TAB PO SCH (23:39)
[2022-08-25] VITALS (7 sets, daily range): BP systolic 98–132; BP diastolic 28–69
[2022-08-25] MEDS: Morphine 2mg Syringe 2 MG/ML SYR IV SCH ×7 (00:52→23:45)
[2022-08-25] MEDS: SODIUM CHLORIDE 0.9% 1000ML 1,000 ML IV SCH ×4 (00:53→22:21)
[2022-08-25 06:07] LABS: BASOPHILS # (AUTO) 0.1 (0.0-0.1); BASOPHILS % 0.9 % (0.0-1.0); EOSINOPHILS # (AUTO) 0.2 (0.0-0.4); EOSINOPHILS % 3.4 % (0.0-6.0); HEMATOCRIT 26.8 % (34.2-44.1); HEMOGLOBIN 8.3 g/dL (12.0-16.0); LYMPHOCYTES # (AUTO) 1.8 (1.0-3.2); LYMPHOCYTES % 27.3 % (18.0-39.1); MEAN CORPUSCULAR HEMOGLOBIN 30.6 pg (28-32); MEAN CORPUSCULAR VOLUME 98.9 fL (81-99); MONOCYTES # (AUTO) 0.7 (0.2-0.8); MONOCYTES % 10.9 % (4.4-11.3); NEUTROPHILS # (AUTO) 3.7 (2.1-6.9); NEUTROPHILS % 57.2 % (38.7-80.0); PLATELET COUNT 173 x10e3/uL (140-360); RED BLOOD COUNT 2.71 x10e6/uL (3.6-5.1); RED CELL DISTRIBUTION WIDTH 13.5 % (11.7-14.4)
[2022-08-25 06:53] LABS: ALBUMIN 2.5 g/dL (3.5-5.0); ANION GAP 12.8 mmol/L (8-16); CALCIUM 8.4 mg/dL (8.4-10.2); CREATININE, SERUM 0.53 mg/dL (0.57-1.11); POTASSIUM 3.8 mmol/L (3.5-5.1)
[2022-08-25 07:09] LABS: CREATINE KINASE 47 IU/L (29-168)
[2022-08-25] MEDS ORDERED: ZINC SULFATE 50 MG CAP PO SCH (09:00)
[2022-08-25] MEDS ORDERED: ASCORBATE SOD PO SCH (09:00)
[2022-08-25] MEDS ORDERED: VITE AC PO SCH (09:00)
[2022-08-25] MEDS ORDERED: CHOLECALCIFEROL 1.25 MG PO SCH (09:00)
[2022-08-25] MEDS: POLYETHYLENE GLYCOL 3350 17 GM PACK PO SCH (09:00)
[2022-08-25] MEDS: CARVEDILOL 3.125 MG TAB PO SCH ×2 (09:00→17:00)
[2022-08-25] MEDS ORDERED: ASCORBIC ACID 500 MG TAB PO SCH (09:00)
[2022-08-25] MEDS: MEMANTINE 10 MG TAB PO SCH ×2 (09:00→17:00)
[2022-08-25] MEDS: FAMOTIDINE 20 MG TAB PO SCH (09:00)
[2022-08-25] MEDS ORDERED: MULTIVITAMINS/MINERALS TAB PO SCH (09:00)
[2022-08-25] MEDS ORDERED: ARGININE PO SCH (09:00)
[2022-08-25] MEDS: FERROUS SULFATE 325 MG TAB PO SCH (09:00)
[2022-08-25] MEDS: BUSPIRONE HCL 5 MG TAB PO SCH ×3 (09:32→21:00)
[2022-08-25] MEDS ORDERED: HYDROCODONE BIT/ACETAMINOPHEN 2.5 MG/108MG PER 5 ML SOLUTION PO PRN (18:00)
[2022-08-25] MEDS: DONEPEZIL HCL 5 MG TAB PO SCH (21:00)
[2022-08-25] MEDS: ROPINIROLE HCL 0.25 MG TAB PO SCH (21:00)
[2022-08-25] MEDS: MELATONIN 3 MG TAB PO SCH (21:00)
[2022-08-26 00:34] VITALS: BP 105/49
[2022-08-26] MEDS: Morphine 2mg Syringe 2 MG/ML SYR IV SCH ×4 (03:45→17:42)
[2022-08-26 05:54] VITALS: BP 108/73
[2022-08-26 08:00] VITALS: BP 101/42
[2022-08-26 08:39] VITALS: BP_SYST 111; BP_DIAS 25; BP_DIAS 65
[2022-08-26] MEDS: BUSPIRONE HCL 5 MG TAB PO SCH ×2 (09:26→17:43)
[2022-08-26] MEDS: CARVEDILOL 3.125 MG TAB PO SCH ×2 (09:27→17:43)
[2022-08-26] MEDS: MEMANTINE 10 MG TAB PO SCH ×2 (09:28→17:43)
[2022-08-26] MEDS: FERROUS SULFATE 325 MG TAB PO SCH (09:28)
[2022-08-26] MEDS: FAMOTIDINE 20 MG TAB PO SCH (09:28)
[2022-08-26] MEDS: POLYETHYLENE GLYCOL 3350 17 GM PACK PO SCH (09:28)
[2022-08-26 12:27] VITALS: BP 81/55
[2022-08-26] MEDS: HYDROCODONE BIT/ACETAMINOPHEN 2.5 MG/108MG PER 5 ML SOLUTION PO SCH ×2 (12:50→17:44)
[2022-08-26] MEDS ORDERED: ONDANSETRON HCL 4 MG ORAL DISINTEGRATING TAB PO PRN (14:00)
[2022-08-26 16:41] VITALS: BP 126/43
== END 2022-08-26 18:57 | disposition hospice, inpatient (51) | DRG 536 ==
LOC: ER 11:21 → ERHOLD 14:46 → MED/SURG2 20:32
PROVIDERS: ADMIT Internal Medicine; ATTEND Internal Medicine
DX: S72.142A Displaced intertrochanteric fracture of left femur, initial encounter for closed fracture (principal); S72.92XA Unspecified fracture of left femur, initial encounter for closed fracture; W06.XXXA Fall from bed, initial encounter; Z66 Do not resuscitate; I10 Essential (primary) hypertension; F06.4 Anxiety disorder due to known physiological condition; F32.9 Major depressive disorder, single episode, unspecified; F48.2 Pseudobulbar affect; G20 Parkinson's disease; G25.81 Restless legs syndrome
CPT/HCPCS: 36415; 70450; 72125; 73521; 80048; 80053; 82550; 82553; 84484; 85025; 94799; 99285; J2270; J2405; J7030